=== PATIENT | female | born 1935 | race Caucasian/White ===

== ENCOUNTER 2018-01-21 14:59 | Inpatient (IN) | payer MEDICARE, MEDICAID ==
[~2018-01-21] VITALS: Ht 142.2 cm; Wt 62.6 kg
[2018-01-21 18:49] LABS: ANION GAP 9 mmol/L (5-15); BLOOD UREA NITROGEN 23 mg/dL (7-18); CALCIUM 8.9 MG/DL (8.5-10.1); CARBON DIOXIDE 23 MMOL/L (21-32); CHLORIDE 106 MMOL/L (98-107); CREATININE 0.9 MG/DL (0.55-1.30); HEMOGLOBIN 11.6 G/DL (12.0-16.0); LYMPHOCYTES % (AUTO) 41.3 % (20.0-45.0); MEAN CORPUSCULAR VOLUME 82 FL (80-99); MONOCYTES % (AUTO) 3.5 % (1.0-10.0); NEUTROPHILS % (AUTO) 50.3 % (45.0-75.0); PLATELET COUNT 180 K/UL (150-450); RED BLOOD COUNT 4.38 M/UL (4.20-5.40); RED CELL DISTRIBUTION WIDTH 12.9 % (11.6-14.8); SODIUM 138 MMOL/L (136-145); WHITE BLOOD COUNT 4.6 K/UL (4.8-10.8)
--- NOTE | 2018-01-21 18:52 | Emergency Room Report ---
History of Present Illness General Chief Complaint: Upper Respiratory Illness Source: Patient, EMS Present Illness HPI The patient states that she has had a progressively worsening cough and shortness of breath. This is occurred over the past 3 days. She states that she has sputum production. She states she has a history of COPD and her inhalers are not working. She denies fever or chills. She denies nausea or vomiting. She denies abdominal pain. She has no other complaints. Allergies: Coded Allergies: No Known Allergies (Unverified , 01/21/18) Patient History Past Medical History: see triage record, HTN, COPD, other - chron's Social History: Denies: smoking, alcohol use, drug use Last Menstrual Period: na Reviewed Nursing Documentation: PMH: Agreed; PSxH: Agreed Nursing Documentation-PMH Past Medical History: No History, Except For Hx Hypertension: Yes Hx COPD: Yes Hx Gastrointestinal Problems: Yes - ulcerative colitis Review of Systems All Other Systems: negative except mentioned in HPI Physical Exam Vital Signs Date Time Temp Pulse Resp B/P (MAP) Pulse Ox O2 Delivery O2 Flow Rate FiO2 01/21/18 14:52 97.6 72 18 126/78 93 Room Air 97.5 Sp02 EP Interpretation: reviewed, normal General Appearance: no apparent distress, alert, GCS 15, non-toxic Head: normocephalic, atraumatic Eyes: bilateral eye normal inspection, bilateral eye PERRL ENT: hearing grossly normal, normal pharynx, no angioedema, normal voice Neck: full range of motion, supple/symm/no masses Respiratory: chest non-tender, lungs clear, normal breath sounds, speaking full sentences Cardiovascular #1: regular rate, rhythm, no edema Gastrointestinal: normal bowel sounds, non tender, soft, non-distended, no guarding, no rebound Rectal: deferred Musculoskeletal: back normal, gait/station normal, normal range of motion, non- tender Neurologic: alert, oriented x3, responsive, motor strength/tone normal, sensory intact, speech normal Psychiatric: judgement/insight normal, memory normal, mood/affect normal, no suicidal/homicidal ideation Skin: normal color, no rash, warm/dry, well hydrated Medical Decision Making Diagnostic Impression: Primary Impression: COPD exacerbation ER Course This patient presents with COPD exacerbation. She has failed treatment at home. She lives alone and she is elderly. The patient was given azithromycin, prednisone and breathing treatments and admitted for further pulmonary hygiene. I felt that this patient should not be discharged home given her age and the progression of her respiratory symptoms. Laboratory Tests Test 01/21/18 18:00 White Blood Count 4.6 K/UL (4.8-10.8) L Red Blood Count 4.38 M/UL (4.20-5.40) Hemoglobin 11.6 G/DL (12.0-16.0) L Hematocrit 36.0 % (37.0-47.0) L Mean Corpuscular Volume 82 FL (80-99) Mean Corpuscular Hemoglobin 26.4 PG (27.0-31.0) L Mean Corpuscular Hemoglobin Concent 32.2 G/DL (32.0-36.0) Red Cell Distribution Width 12.9 % (11.6-14.8) Platelet Count 180 K/UL (150-450) Mean Platelet Volume 7.7 FL (6.5-10.1) Neutrophils (%) (Auto) 50.3 % (45.0-75.0) Lymphocytes (%) (Auto) 41.3 % (20.0-45.0) Monocytes (%) (Auto) 3.5 % (1.0-10.0) Eosinophils (%) (Auto) 3.0 % (0.0-3.0) Basophils (%) (Auto) 2.0 % (0.0-2.0) Sodium Level 138 MMOL/L (136-145) Potassium Level 5.0 MMOL/L (3.5-5.1) Chloride Level 106 MMOL/L (98-107) Carbon Dioxide Level 23 MMOL/L (21-32) Anion Gap 9 mmol/L (5-15) Blood Urea Nitrogen 23 mg/dL (7-18) H Creatinine 0.9 MG/DL (0.55-1.30) Estimate Glomerular Filtration Rate mL/min (>60) Glucose Level 116 MG/DL (74-106) H Calcium Level 8.9 MG/DL (8.5-10.1) Total Bilirubin 0.2 MG/DL (0.2-1.0) Aspartate Amino Transferase (AST) 21 U/L (15-37) Alanine Aminotransferase (ALT) 19 U/L (12-78) Alkaline Phosphatase 48 U/L (46-116) Total Creatine Kinase 121 U/L (26-308) Troponin I 0.000 ng/mL (0.000-0.056) Total Protein 7.4 G/DL (6.4-8.2) Albumin 3.9 G/DL (3.4-5.0) Globulin 3.5 g/dL Albumin/Globulin Ratio 1.1 (1.0-2.7) Chest X-Ray Diagnostic Results Chest X-Ray Diagnostic Results : Chest X-Ray Ordered: Yes # of Views/Limited/Complete: 1 View Indication: Shortness of Breath EP Interpretation: Yes Interpretation: no consolidation, no effusion, no pneumothorax, no acute cardiopulmonary disease Impression: No acute disease Electronically Signed by: Elaine Last Vital Signs Date Time Temp Pulse Resp B/P (MAP) Pulse Ox O2 Delivery O2 Flow Rate FiO2 01/21/18 18:18 72 18 Room Air 01/21/18 14:52 97.6 126/78 93 97.5 Disposition: ADMITTED INPATIENT Condition: Stable Referrals: NOT CHOSEN IPA/,REFERRING (PCP) NASREEN DAWN D.O. Jan 21, 2018 18:52
[2018-01-21 18:54] LABS: ALANINE AMINOTRANSFERASE 19 U/L (12-78); ALBUMIN 3.9 G/DL (3.4-5.0); ALBUMIN/GLOBULIN RATIO 1.1 (1.0-2.7); ALKALINE PHOSPHATASE 48 U/L (46-116); ASPARTATE AMINO TRANSFERASE 21 U/L (15-37); BILIRUBIN,TOTAL 0.2 MG/DL (0.2-1.0); CREATINE KINASE 121 U/L (26-308)
[2018-01-21] MEDS ORDERED: Ipratropium 0.02% Inh Soln 2.5ml UD HHN ONE (19:00)
[2018-01-21] MEDS ORDERED: Azithromycin 500 MG in NS 275 ML IV ONE (19:00)
[2018-01-21] MEDS ORDERED: Albuterol ud Inhalation HHN ONE (19:00)
[2018-01-21 19:18] VITALS: BP 114/62
[2018-01-21] MEDS ORDERED: CYMBALTA30 MG ORAL (19:20)
[2018-01-21] MEDS ORDERED: NEURONTIN100 MG ORAL (19:20)
[2018-01-21] MEDS ORDERED: XANAX0.25 MG ORAL (19:20)
[2018-01-21] MEDS ORDERED: BREO ELLIPTA 21 EACH IH (20:01)
[2018-01-21] MEDS ORDERED: BENICAR20 MG ORAL (20:01)
[2018-01-21] MEDS ORDERED: ROPINIROLE HCL1 MG PO (20:01)
[2018-01-21] MEDS ORDERED: ALPRAZOLAM0.5 MG PO (20:01)
[2018-01-21] MEDS ORDERED: CYMBALTA60 MG ORAL (20:01)
[2018-01-21] MEDS ORDERED: GABAPENTIN600 MG ORAL (20:01)
[2018-01-21] MEDS ORDERED: MONTELUKAST SOD10 MG ORAL (20:01)
[2018-01-21] MEDS ORDERED: VENTOLIN HFA18 GM INH (20:01)
[2018-01-21] MEDS ORDERED: BEVESPI AEROS10.7 GM IH (20:01)
[2018-01-21] MEDS ORDERED: NORCO 5-325 TA1 EAC1 ORAL (20:01)
[2018-01-21] MEDS ORDERED: NEXIUM40 MG ORAL (20:01)
[2018-01-21] MEDS ORDERED: AZITHROMYCIN250 MG ORAL (20:02)
[2018-01-21 20:10] VITALS: BP 116/45
[2018-01-21 20:36] VITALS: BP 116/45
[2018-01-22] VITALS: BP 116/78
[2018-01-22] MEDS: ALPRAZolam 0.5mg tab ORAL SCH ×5 (00:03→20:11)
[2018-01-22 04:00] VITALS: BP 127/75
[2018-01-22 08:00] VITALS: BP 107/72
[2018-01-22] MEDS: DULoxetine 30mg cap ORAL SCH (08:24)
--- NOTE | 2018-01-22 08:28 | Diagnostic Imaging Report ---
Indication: Cough Technique: One view of the chest Comparison: none Findings: There is elevation of left hemidiaphragm, resultant crowding of the bronchovascular markings on the left. Lungs and pleural spaces are otherwise clear. Heart size is upper limits of normal. There are degenerative changes of the right shoulder Impression: No acute process. Findings as noted
[2018-01-22 12:00] VITALS: BP 142/76
[2018-01-22 16:07] VITALS: BP 109/59
--- NOTE | 2018-01-22 16:36 | Consultation ---
History of Present Illness General Date patient seen: Jan 22, 2018 Chief Complaint: Upper Respiratory Illness Present Illness HPI 82 year old female with hx of COPD, current smoker for more than 40 years. presented to ER with CC of worsening cough and shortness of breath. This is occurred over the past 3 days. She states that she has sputum production. She denies fever or chills. She denies nausea or vomiting. She denies abdominal pain. She has no other complaints. She was diagnosed to have acute exacerbation of COPD and [place] [facility]. Allergies: Coded Allergies: No Known Allergies (Unverified , 01/21/18) Medication History Scheduled Albuterol Sulfate (Ventolin Hfa), 2 PUFFS INH EVERY 6 HOURS, (Reported) Alprazolam* (Xanax*), 0.5 MG PO QID, (Reported) Azithromycin* (Zithromax*), 250 MG ORAL DAILY, (Reported) Duloxetine Hcl* (Cymbalta*), 60 MG ORAL DAILY, (Reported) Esomeprazole Magnesium (Nexium), 40 MG ORAL DAILY, (Reported) Fluticasone/Vilanterol (Breo Ellipta 200-25 Mcg INH), 1 EACH IH BID, (Reported) Gabapentin* (Gabapentin*), 600 MG ORAL THREE TIMES A DAY, (Reported) Glycopyrrolate/Formoterol Fum (Bevespi Aerosphere Inhaler), 10.7 GM IH DAILY, ( Reported) Montelukast Sodium* (Montelukast Sodium*), 10 MG ORAL DAILY, (Reported) Olmesartan Medoxomil (Benicar), 20 MG ORAL DAILY, (Reported) Ropinirole Hcl* (Ropinirole Hcl*), 3 MG PO TID, (Reported) Scheduled PRN Hydrocodone Bit/Acetaminophen 5-325* ([place] 5-325 Tablet*), 1 TAB ORAL BID PRN for For Pain, (Reported) Discontinued Medications Alprazolam* (Xanax*), Unknown Dose ORAL THREE TIMES A DAY, (Reported) Discontinued Reason: Prescription changed Duloxetine Hcl* (Cymbalta*), Unknown Dose ORAL DAILY, (Reported) Discontinued Reason: Prescription changed Gabapentin* (Neurontin*), Unknown Dose ORAL THREE TIMES A DAY, (Reported) Discontinued Reason: Prescription changed Patient History Healthcare decision maker N Resuscitation status Full Code Advanced Directive on File No Past Medical/Surgical History Past Medical/Surgical History: (1) COPD (chronic obstructive pulmonary disease) Review of Systems Respiratory: Reports: shortness of breath, sputum All Other Systems: negative except mentioned in HPI Physical Exam General Appearance: WD/WN Lines, tubes and drains: peripheral HEENT: normocephalic, atraumatic, PERRL Neck: non-tender, normal alignment, limited range of motion Respiratory/Chest: chest wall non-tender, lungs clear Breasts: no masses Cardiovascular/Chest: normal peripheral pulses, normal rate, regular rhythm Abdomen: normal bowel sounds, non tender, soft Genitourinary/Rectal: normal genital exam, heme negative stool Extremities: normal range of motion, non-tender Skin Exam: normal pigmentation Neurologic: representative phlebotomy services II-XII grossly normal Lymphatic: anterior cervical Last 24 Hour Vital Signs Date Time Temp Pulse Resp B/P (MAP) Pulse Ox O2 Delivery O2 Flow Rate FiO2 01/22/18 16:07 98.1 75 18 109/59 94 Room Air 98.1 01/22/18 12:00 97.9 89 18 142/76 99 97.9 01/22/18 11:00 97.4 01/22/18 10:01 97.4 01/22/18 08:00 97.4 78 18 107/72 93 97.4 01/22/18 00:00 97.3 75 18 116/78 94 97.3 01/21/18 20:40 97.1 83 18 116/45 100 Room Air 21 97.1 01/21/18 20:36 83 18 116/45 100 Room Air 21 01/21/18 20:10 97.1 76 19 116/45 100 Room Air 21 97.1 01/21/18 19:52 71 19 100 Room Air 21 01/21/18 19:37 75 23 100 Room Air 01/21/18 19:37 75 23 Room Air 01/21/18 19:21 76 18 Room Air 01/21/18 19:18 97.5 76 18 114/62 98 Room Air 97.5 01/21/18 18:18 72 18 Room Air Intake and Output 01/21/18 01/22/18 19:00 07:00 Intake Total 275 ml Balance 275 ml IV Total 275 ml # Voids 1 Laboratory Tests Test 01/21/18 18:00 White Blood Count 4.6 K/UL (4.8-10.8) L Red Blood Count 4.38 M/UL (4.20-5.40) Hemoglobin 11.6 G/DL (12.0-16.0) L Hematocrit 36.0 % (37.0-47.0) L Mean Corpuscular Volume 82 FL (80-99) Mean Corpuscular Hemoglobin 26.4 PG (27.0-31.0) L Mean Corpuscular Hemoglobin Concent 32.2 G/DL (32.0-36.0) Red Cell Distribution Width 12.9 % (11.6-14.8) Platelet Count 180 K/UL (150-450) Mean Platelet Volume 7.7 FL (6.5-10.1) Neutrophils (%) (Auto) 50.3 % (45.0-75.0) Lymphocytes (%) (Auto) 41.3 % (20.0-45.0) Monocytes (%) (Auto) 3.5 % (1.0-10.0) Eosinophils (%) (Auto) 3.0 % (0.0-3.0) Basophils (%) (Auto) 2.0 % (0.0-2.0) Sodium Level 138 MMOL/L (136-145) Potassium Level 5.0 MMOL/L (3.5-5.1) Chloride Level 106 MMOL/L (98-107) Carbon Dioxide Level 23 MMOL/L (21-32) Anion Gap 9 mmol/L (5-15) Blood Urea Nitrogen 23 mg/dL (7-18) H Creatinine 0.9 MG/DL (0.55-1.30) Estimat Glomerular Filtration Rate mL/min (>60) Glucose Level 116 MG/DL (74-106) H Calcium Level 8.9 MG/DL (8.5-10.1) Total Bilirubin 0.2 MG/DL (0.2-1.0) Aspartate Amino Transf (AST/SGOT) 21 U/L (15-37) Alanine Aminotransferase (ALT/SGPT) 19 U/L (12-78) Alkaline Phosphatase 48 U/L (46-116) Total Creatine Kinase 121 U/L (26-308) Troponin I 0.000 ng/mL (0.000-0.056) Total Protein 7.4 G/DL (6.4-8.2) Albumin 3.9 G/DL (3.4-5.0) Globulin 3.5 g/dL Albumin/Globulin Ratio 1.1 (1.0-2.7) Height (Feet): 4 Height (Inches): 8.00 Weight (Pounds): 138 Medications Current Medications Medications (Trade) Dose Ordered Sig/Nahum Route PRN Reason Start Time Stop Time Status Last Admin Dose Admin Acetaminophen (Tylenol) 650 mg Q6H PRN ORAL Mild Pain/Temp > 100.5 01/22/18 06:45 02/21/18 06:44 01/22/18 10:01 Alprazolam (Xanax) 0.5 mg QID ORAL 01/21/18 23:51 01/28/18 23:50 01/22/18 12:06 Duloxetine HCl (Cymbalta) 60 mg DAILY ORAL 01/22/18 09:00 02/21/18 08:59 01/22/18 08:24 Gabapentin (Neurontin) 600 mg THREE TIMES A DAY ORAL 01/21/18 22:00 02/20/18 21:59 01/22/18 12:05 Ropinirole HCl (Requip) 3 mg TID ORAL 01/21/18 22:00 02/20/18 21:59 01/22/18 12:05 Temazepam (Restoril) 15 mg HSPRN PRN ORAL Insomnia 01/22/18 05:30 01/29/18 05:29 Assessment/Plan Problem List: (1) Acute bronchitis ICD Codes: J20.9 - Acute bronchitis, unspecified SNOMED: 34050040 (2) COPD exacerbation ICD Codes: J44.1 - Chronic obstructive pulmonary disease with (acute) exacerbation SNOMED: 726960401 Assessment/Plan check sputum respiratory treatment iv steroids iv abx chest pt titrate fio2 to sat of 92% dvt prophylaxis. Octavio Peters MD Jan 22, 2018 16:36
[2018-01-22] MEDS ORDERED: Levofloxacin 500mg tab ORAL SCH (20:00)
[2018-01-22] MEDS: Norco 5mg/325mg tab ORAL PRN (20:13)
[2018-01-22 21:00] VITALS: BP 102/74
--- NOTE | 2018-01-22 21:41 | Consultation ---
History of Present Illness General Date patient seen: Jan 22, 2018 Chief Complaint: Upper Respiratory Illness Present Illness HPI 82-year-old female with hx of depression and anxiety who presents with chief complaint of cough and shortness of breath. the pt stated that she is not able to sleep and has problems with breathing. the pt has no si/hi. the pt is on xanax 2mg daily and Cymbalta. The pt is not psychotic/manic. Allergies: Coded Allergies: No Known Allergies (Unverified , 01/21/18) Medication History Scheduled Albuterol Sulfate (Ventolin Hfa), 2 PUFFS INH EVERY 6 HOURS, (Reported) Alprazolam* (Xanax*), 0.5 MG PO QID, (Reported) Azithromycin* (Zithromax*), 250 MG ORAL DAILY, (Reported) Duloxetine Hcl* (Cymbalta*), 60 MG ORAL DAILY, (Reported) Esomeprazole Magnesium (Nexium), 40 MG ORAL DAILY, (Reported) Fluticasone/Vilanterol (Breo Ellipta 200-25 Mcg INH), 1 EACH IH BID, (Reported) Gabapentin* (Gabapentin*), 600 MG ORAL THREE TIMES A DAY, (Reported) Glycopyrrolate/Formoterol Fum (Bevespi Aerosphere Inhaler), 10.7 GM IH DAILY, ( Reported) Montelukast Sodium* (Montelukast Sodium*), 10 MG ORAL DAILY, (Reported) Olmesartan Medoxomil (Benicar), 20 MG ORAL DAILY, (Reported) Ropinirole Hcl* (Ropinirole Hcl*), 3 MG PO TID, (Reported) Scheduled PRN Hydrocodone Bit/Acetaminophen 5-325* ([place] 5-325 Tablet*), 1 TAB ORAL BID PRN for For Pain, (Reported) Discontinued Medications Alprazolam* (Xanax*), Unknown Dose ORAL THREE TIMES A DAY, (Reported) Discontinued Reason: Prescription changed Duloxetine Hcl* (Cymbalta*), Unknown Dose ORAL DAILY, (Reported) Discontinued Reason: Prescription changed Gabapentin* (Neurontin*), Unknown Dose ORAL THREE TIMES A DAY, (Reported) Discontinued Reason: Prescription changed Patient History Limited by: medical condition History Provided By: Patient, Medical Record, PMD Healthcare decision maker N Resuscitation status Full Code Advanced Directive on File No Past Medical/Surgical History Past Medical/Surgical History: (1) COPD (chronic obstructive pulmonary disease) (2) Acute bronchitis (3) COPD exacerbation Review of Systems Psychiatric: Reports: prior hx, anxiety, depressed feelings, emotional problems Physical Exam General Appearance: WD/WN, no apparent distress, alert Neurologic: alert, oriented x 3, responsive, depressed affect Last 24 Hour Vital Signs Date Time Temp Pulse Resp B/P (MAP) Pulse Ox O2 Delivery O2 Flow Rate FiO2 01/22/18 16:07 98.1 75 18 109/59 94 Room Air 98.1 01/22/18 12:00 97.9 89 18 142/76 99 97.9 01/22/18 11:00 97.4 01/22/18 10:01 97.4 01/22/18 08:00 97.4 78 18 107/72 93 97.4 01/22/18 00:00 97.3 75 18 116/78 94 97.3 Intake and Output 01/21/18 01/22/18 19:00 07:00 Intake Total 275 ml Balance 275 ml IV Total 275 ml # Voids 1 Height (Feet): 4 Height (Inches): 8.00 Weight (Pounds): 138 Medications Current Medications Medications (Trade) Dose Ordered Sig/Nahum Route PRN Reason Start Time Stop Time Status Last Admin Dose Admin Acetaminophen (Tylenol) 650 mg Q6H PRN ORAL Mild Pain/Temp > 100.5 01/22/18 06:45 02/21/18 06:44 01/22/18 10:01 Acetaminophen/ Hydrocodone Bitart ([place] 5/325) 1 tab BIDPRN PRN ORAL Moderate-Severe Pain (4-10) 01/22/18 16:30 01/29/18 16:29 01/22/18 20:13 Alprazolam (Xanax) 0.5 mg QID ORAL 01/21/18 23:51 01/28/18 23:50 01/22/18 20:11 Diphenhydramine HCl (Benadryl) 25 mg Q8H PRN ORAL Itching 01/22/18 17:15 02/21/18 17:14 01/22/18 20:11 Duloxetine HCl (Cymbalta) 60 mg DAILY ORAL 01/22/18 09:00 02/21/18 08:59 01/22/18 08:24 Gabapentin (Neurontin) 600 mg THREE TIMES A DAY ORAL 01/21/18 22:00 02/20/18 21:59 01/22/18 17:15 Levofloxacin (Levaquin) 250 mg QHS ORAL 01/23/18 21:00 01/30/18 20:59 Levofloxacin (Levaquin) 500 mg ONCE ORAL 01/22/18 20:00 01/29/18 19:59 01/22/18 20:11 Montelukast Sodium (Singulair) 10 mg DAILY ORAL 01/23/18 09:00 02/22/18 08:59 Ropinirole HCl (Requip) 3 mg TID ORAL 01/21/18 22:00 02/20/18 21:59 01/22/18 17:15 Temazepam (Restoril) 15 mg HSPRN PRN ORAL Insomnia 01/22/18 05:30 01/29/18 05:29 Assessment/Plan Status: stable Assessment/Plan MDD Anxiety d/o -Xanax -Cymbalta 60mg qam -Remeron 7.5mg qhs Alem Morales M.D. Jan 22, 2018 21:41
[2018-01-22] MEDS ORDERED: Albuterol ud Inhalation HHN PRN (21:45)
[2018-01-22] MEDS ORDERED: Ipratropium 0.02% Inh Soln 2.5ml UD HHN PRN (21:45)
[2018-01-22] MEDS ORDERED: ALPRAZolam 0.5mg tab ORAL SCH (22:00)
[2018-01-23] VITALS: BP 99/58
--- NOTE | 2018-01-23 | History and Physical Report ---
DATE OF ADMISSION: 01/21/2018 CHIEF COMPLAINT: The patient is an 82-year-old white female who presents with chief complaint of cough and shortness of breath. HISTORY OF PRESENT ILLNESS: Began three days prior to admission. The patient began to experience upper respiratory tract infection symptoms. The patient does complain of cough. The patient was complaining of nasal discharge. Cough is nonproductive. The patient was seen by her primary care physician and given a Z-Vitaly. The patient states she became increasingly short of breath over the last three days. The patient also had subjective fevers and chills. The patient had a cough, which was productive of a greenish sputum. The patient also had nasal discharge. The patient presented to [facility]. The patient was admitted for cough to rule out pneumonia. PAST MEDICAL HISTORY: Significant for: 1. Hypertension. 2. Chronic obstructive pulmonary disease. 3. Ulcerative colitis. PAST SURGICAL HISTORY: Significant for: 1. Cholecystectomy. 2. Incisional hernia repair. 3. section. 4. Right hip open reduction and internal fixation. CURRENT MEDICATIONS: 1. Albuterol metered-dose inhaler two puffs p.o. q.i.d. p.r.n. 2. Xanax 0.5 mg p.o. q.i.d. p.r.n. 3. Cymbalta 60 mg p.o. daily. 4. Nexium 40 mg p.o. daily. 5. Breo Ellipta 200/25 one inhalation twice daily. 6. Gabapentin 600 mg p.o. three times daily. 7. inhaler one inhalation daily. 8. [place] 5/325 mg one tablet p.o. twice daily p.r.n. 9. Singulair 10 mg p.o. daily. 10. Benicar 20 mg p.o. daily. 11. Requip 3 mg p.o. three times daily. ALLERGIES: No known drug allergies. SOCIAL HISTORY: The patient is . The patient admits to tobacco use of one-quarter pack per day. The patient denies alcohol use. REVIEW OF SYSTEMS: CONSTITUTIONAL: The patient denies weight loss or weight gain. The patient denies fevers or chills. HEENT: The patient denies ear or throat pain. The patient denies headache. CARDIOVASCULAR: The patient denies palpitations or chest pain. CHEST: The patient complains of cough as above. The patient denies wheezes. ABDOMEN: The patient denies nausea, vomiting, diarrhea, or constipation. GENITOURINARY: The patient denies dysuria or increased frequency of urination. NEUROMUSCULAR: The patient denies seizures or generalized weakness. PHYSICAL EXAMINATION: VITAL SIGNS: Temperature 97.3 degrees, respirations 18, pulse 75, and blood pressure 116/70. GENERAL: The patient is a well-nourished, well-nourished, white female, in no apparent distress. HEENT: Eyes, pupils equal and responsive to light and accommodation. Extraocular movements are intact. NECK: Supple without lymphadenopathy. CHEST: Few expiratory wheezes bilaterally. Chest is negative for rales. Lungs are otherwise clear to auscultation without wheezes or rales. CARDIOVASCULAR: Regular rhythm and rate. S1 and S2 are normal without murmurs, rubs, or gallops. ABDOMEN: Soft, nontender, and nondistended. Positive bowel sounds. No evidence of hepatosplenomegaly. Currently, no rebound or guarding noted. RECTAL: Refused. GENITALIA: Refused. EXTREMITIES: Negative for clubbing, cyanosis, or edema. NEUROLOGIC: Cranial nerves II to XII are grossly intact without focal deficits. Motor strength is 5/5 bilaterally intact. Deep tendon reflexes are 2+ plantar. LABORATORY STUDIES: WBC 4.6, hemoglobin 11.6, hematocrit 36.0, and platelets 180,000. Sodium 138, potassium 5.0, chloride 106, CO2 23, BUN 23, creatinine 0.9, and glucose 116. Chest x-ray is reported as no acute disease. ASSESSMENT: This is an 82-year-old white female with: 1. Shortness of breath. 2. Bronchitis. 3. Chronic obstructive pulmonary disease acute exacerbation. 4. Hypertension. 5. History of ulcerative colitis. TREATMENT: 1. Shortness of breath/bronchitis/chronic obstructive pulmonary disease. A Pulmonary consultation has been obtained with Dr. Octavio Peters. The patient has been started empirically on Levaquin. We will follow recommendations of Pulmonary. 2. Hypertension. Continue Benicar as above. 3. Ulcerative colitis. Surya Guerra M.D. DR: Ruddy JOB#: [id number] CC:
[2018-01-23] MEDS: Albuterol/Ipratropium 3ml neb HHN SCH ×4 (01:27→20:52)
[2018-01-23] MEDS ORDERED: Albuterol ud Inhalation HHN PRN (01:45)
[2018-01-23 04:00] VITALS: BP 97/59
[2018-01-23 06:37] LABS: BASOPHILS % (AUTO) 1.7 % (0.0-2.0); EOSINOPHILS % (AUTO) 1.5 % (0.0-3.0); HEMATOCRIT 32.4 % (37.0-47.0); HEMOGLOBIN 10.5 G/DL (12.0-16.0); LYMPHOCYTES % (AUTO) 35.3 % (20.0-45.0); MEAN CORPUSCULAR VOLUME 83 FL (80-99); MONOCYTES % (AUTO) 8.2 % (1.0-10.0); NEUTROPHILS % (AUTO) 53.3 % (45.0-75.0); PLATELET COUNT 174 K/UL (150-450); RED BLOOD COUNT 3.92 M/UL (4.20-5.40); RED CELL DISTRIBUTION WIDTH 12.9 % (11.6-14.8); WHITE BLOOD COUNT 4.4 K/UL (4.8-10.8)
[2018-01-23 06:56] LABS: ALANINE AMINOTRANSFERASE 19 U/L (12-78); ALBUMIN 3.6 G/DL (3.4-5.0); ALBUMIN/GLOBULIN RATIO 1.1 (1.0-2.7); ALKALINE PHOSPHATASE 37 U/L (46-116); ANION GAP 11 mmol/L (5-15); ASPARTATE AMINO TRANSFERASE 16 U/L (15-37); BILIRUBIN,TOTAL 0.4 MG/DL (0.2-1.0); BLOOD UREA NITROGEN 30 mg/dL (7-18); CALCIUM 8.6 MG/DL (8.5-10.1); CARBON DIOXIDE 22 MMOL/L (21-32); CHLORIDE 105 MMOL/L (98-107); PHOSPHORUS 3.9 MG/DL (2.5-4.9); POTASSIUM 4.9 MMOL/L (3.5-5.1); SODIUM 137 MMOL/L (136-145)
[2018-01-23] MEDS: DULoxetine 30mg cap ORAL SCH (08:31)
[2018-01-23] MEDS: ALPRAZolam 0.5mg tab ORAL SCH ×2 (08:32→22:11)
[2018-01-23] MEDS: Montelukast 10mg tablet ORAL SCH (08:32)
[2018-01-23 12:00] VITALS: BP 117/67
--- NOTE | 2018-01-23 12:13 | General Progress Note ---
Assessment/Plan Status: stable, progressing Assessment/Plan MDD Anxiety d/o -Xanax -Cymbalta 60mg qam -Remeron 7.5mg qhs Subjective Date patient seen: Jan 23, 2018 Neurologic/Psychiatric: Reports: anxiety, depressed, emotional problems Allergies: Coded Allergies: No Known Allergies (Unverified , 01/21/18) Objective Last 24 Hour Vital Signs Date Time Temp Pulse Resp B/P (MAP) Pulse Ox O2 Delivery O2 Flow Rate FiO2 01/23/18 07:26 81 16 97 Room Air 21 01/23/18 07:15 68 16 Room Air 21 01/23/18 07:15 68 18 94 Room Air 21 01/23/18 04:00 97.3 71 15 97/59 97.3 01/23/18 04:00 92 01/23/18 01:36 70 18 96 Room Air 21 01/23/18 01:24 68 20 95 Room Air 21 01/23/18 00:00 97.8 69 16 99/58 95 97.8 01/22/18 22:22 69 16 95 Room Air 21 01/22/18 22:05 72 18 93 Room Air 21 01/22/18 22:05 72 18 Room Air 21 01/22/18 21:00 97.7 73 15 102/74 93 97.7 01/22/18 16:07 98.1 75 18 109/59 94 Room Air 98.1 Intake and Output 01/22/18 01/23/18 19:00 07:00 Intake Total 240 ml Balance 240 ml Intake Oral 240 ml # Voids 3 3 # Bowel Movements 1 Laboratory Tests 01/23/18 04:50: White Blood Count 4.4L, Red Blood Count 3.92L, Hemoglobin 10.5L, Hematocrit 32.4L, Mean Corpuscular Volume 83, Mean Corpuscular Hemoglobin 26.9L, Mean Corpuscular Hemoglobin Concent 32.6, Red Cell Distribution Width 12.9, Platelet Count 174, Mean Platelet Volume 8.2, Neutrophils (%) (Auto) 53.3, Lymphocytes (% ) (Auto) 35.3, Monocytes (%) (Auto) 8.2, Eosinophils (%) (Auto) 1.5, Basophils ( %) (Auto) 1.7, Erythrocyte Sedimentation Rate 24, Sodium Level 137, Potassium Level 4.9, Chloride Level 105, Carbon Dioxide Level 22, Anion Gap 11, Blood Urea Nitrogen 30H, Creatinine 1.0, Estimat Glomerular Filtration Rate , Glucose Level 80, Calcium Level 8.6, Phosphorus Level 3.9, Magnesium Level 1.7L, Total Bilirubin 0.4, Aspartate Amino Transf (AST/SGOT) 16, Alanine Aminotransferase ( ALT/SGPT) 19, Alkaline Phosphatase 37L, C-Reactive Protein, Quantitative < 0.4, Total Protein 6.9, Albumin 3.6, Globulin 3.3, Albumin/Globulin Ratio 1.1 Height (Feet): 4 Height (Inches): 8.00 Weight (Pounds): 138 General Appearance: WD/WN, no apparent distress, alert Neurologic: alert, oriented x 3, responsive, depressed affect Alem Morales M.D. Jan 23, 2018 12:13
[2018-01-23] MEDS ORDERED: ALPRAZolam 0.5mg tab ORAL SCH (13:00)
[2018-01-23] MEDS ORDERED: Promethazine/Codeine 5ml UD ORAL PRN (14:45)
--- NOTE | 2018-01-23 14:47 | Pulmonology Progress Note ---
Assessment/Plan Problems: (1) Acute bronchitis (2) COPD exacerbation Assessment/Plan check sputum BC pending add steroids add theophyline check labs in am Subjective ROS Limited/Unobtainable: No Interval Events: still coughin, less energetic Allergies: Coded Allergies: No Known Allergies (Unverified , 01/21/18) Objective Last 24 Hour Vital Signs Date Time Temp Pulse Resp B/P (MAP) Pulse Ox O2 Delivery O2 Flow Rate FiO2 01/23/18 13:55 71 18 95 Room Air 21 01/23/18 12:00 97.4 63 20 117/67 99 97.4 01/23/18 07:26 81 16 97 Room Air 21 01/23/18 07:15 68 16 Room Air 21 01/23/18 07:15 68 18 94 Room Air 21 01/23/18 04:00 97.3 71 15 97/59 97.3 01/23/18 04:00 92 01/23/18 01:36 70 18 96 Room Air 21 01/23/18 01:24 68 20 95 Room Air 21 01/23/18 00:00 97.8 69 16 99/58 95 97.8 01/22/18 22:22 69 16 95 Room Air 21 01/22/18 22:05 72 18 93 Room Air 21 01/22/18 22:05 72 18 Room Air 21 01/22/18 21:00 97.7 73 15 102/74 93 97.7 01/22/18 16:07 98.1 75 18 109/59 94 Room Air 98.1 Intake and Output 01/22/18 01/23/18 19:00 07:00 Intake Total 240 ml Balance 240 ml Intake Oral 240 ml # Voids 3 3 # Bowel Movements 1 General Appearance: WD/WN HEENT: normocephalic, atraumatic Respiratory/Chest: chest wall non-tender, lungs clear Breasts: no masses Cardiovascular: normal peripheral pulses Abdomen: normal bowel sounds, soft, non tender Extremities: no cyanosis Skin: no rash 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, no motor/sensory deficits, abnormal gait Microbiology Date/Time Source Procedure Growth Status 01/21/18 18:00 Blood Blood Culture - Preliminary NO GROWTH AFTER 24 HOURS Resulted 01/21/18 18:00 Blood Blood Culture - Preliminary NO GROWTH AFTER 24 HOURS Resulted Laboratory Tests 01/23/18 04:50: White Blood Count 4.4L, Red Blood Count 3.92L, Hemoglobin 10.5L, Hematocrit 32.4L, Mean Corpuscular Volume 83, Mean Corpuscular Hemoglobin 26.9L, Mean Corpuscular Hemoglobin Concent 32.6, Red Cell Distribution Width 12.9, Platelet Count 174, Mean Platelet Volume 8.2, Neutrophils (%) (Auto) 53.3, Lymphocytes (% ) (Auto) 35.3, Monocytes (%) (Auto) 8.2, Eosinophils (%) (Auto) 1.5, Basophils ( %) (Auto) 1.7, Erythrocyte Sedimentation Rate 24, Sodium Level 137, Potassium Level 4.9, Chloride Level 105, Carbon Dioxide Level 22, Anion Gap 11, Blood Urea Nitrogen 30H, Creatinine 1.0, Estimat Glomerular Filtration Rate , Glucose Level 80, Calcium Level 8.6, Phosphorus Level 3.9, Magnesium Level 1.7L, Total Bilirubin 0.4, Aspartate Amino Transf (AST/SGOT) 16, Alanine Aminotransferase ( ALT/SGPT) 19, Alkaline Phosphatase 37L, C-Reactive Protein, Quantitative < 0.4, Total Protein 6.9, Albumin 3.6, Globulin 3.3, Albumin/Globulin Ratio 1.1 Current Medications Medications (Trade) Dose Ordered Sig/Nahum Route PRN Reason Start Time Stop Time Status Last Admin Dose Admin Acetaminophen (Tylenol) 650 mg Q6H PRN ORAL Mild Pain/Temp > 100.5 01/22/18 06:45 02/21/18 06:44 01/22/18 10:01 Acetaminophen/ Hydrocodone Bitart ([place] 5/325) 1 tab BIDPRN PRN ORAL Moderate-Severe Pain (4-10) 01/22/18 16:30 01/29/18 16:29 01/22/18 20:13 Albuterol Sulfate (Proventil) 2.5 mg Q4H PRN HHN SHORTNESS OF BREATH 01/23/18 01:45 01/27/18 21:44 Albuterol/ Ipratropium (Albuterol/ Ipratropium) 3 ml Q6HRT HHN 01/23/18 01:00 01/28/18 00:59 01/23/18 14:00 Alprazolam (Xanax) 0.25 mg QID ORAL 01/23/18 13:00 01/30/18 12:59 01/23/18 12:42 Diphenhydramine HCl (Benadryl) 25 mg Q8H PRN ORAL Itching 01/22/18 17:15 02/21/18 17:14 01/23/18 05:21 Duloxetine HCl (Cymbalta) 60 mg DAILY ORAL 01/22/18 09:00 02/21/18 08:59 01/23/18 08:31 Gabapentin (Neurontin) 600 mg THREE TIMES A DAY ORAL 01/21/18 22:00 02/20/18 21:59 01/23/18 12:41 Ipratropium [place] (Atrovent) 500 mcg Q4H PRN HHN UNRELIEVED S.O.B 01/22/18 21:45 01/27/18 21:44 01/22/18 22:04 Levofloxacin (Levaquin) 250 mg QHS ORAL 01/23/18 21:00 01/30/18 20:59 Levofloxacin (Levaquin) 500 mg ONCE ORAL 01/22/18 20:00 01/29/18 19:59 01/22/18 20:11 Mirtazapine (Remeron) 7.5 mg BEDTIME ORAL 01/23/18 21:00 02/22/18 20:59 Montelukast Sodium (Singulair) 10 mg DAILY ORAL 01/23/18 09:00 02/22/18 08:59 01/23/18 08:32 Ropinirole HCl (Requip) 3 mg TID ORAL 01/21/18 22:00 02/20/18 21:59 01/23/18 12:41 Octavio Peters MD Jan 23, 2018 14:46
[2018-01-23] MEDS: Theophylline ER 100mg ORAL SCH (16:00)
[2018-01-23] MEDS: Solu-MEDROL 40mg Inj IVP SCH ×2 (16:01→22:11)
--- NOTE | 2018-01-23 16:28 | Internal Med Progress Note ---
Subjective Date of Service: Jan 23, 2018 Physician Name Andres Chavez Attending Physician Kris Sahni MD Current Medications Medications (Trade) Dose Ordered Sig/Nahum Route PRN Reason Start Time Stop Time Status Last Admin Dose Admin Acetaminophen (Tylenol) 650 mg Q6H PRN ORAL Mild Pain/Temp > 100.5 01/22/18 06:45 02/21/18 06:44 01/22/18 10:01 Acetaminophen/ Hydrocodone Bitart ([place] 5/325) 1 tab BIDPRN PRN ORAL Moderate-Severe Pain (4-10) 01/22/18 16:30 01/29/18 16:29 01/22/18 20:13 Albuterol Sulfate (Proventil) 2.5 mg Q4H PRN HHN SHORTNESS OF BREATH 01/23/18 01:45 01/27/18 21:44 Albuterol/ Ipratropium (Albuterol/ Ipratropium) 3 ml Q6HRT HHN 01/23/18 01:00 01/28/18 00:59 01/23/18 14:00 Alprazolam (Xanax) 0.25 mg EVERY 8 HOURS ORAL 01/23/18 22:00 01/30/18 12:59 Diphenhydramine HCl (Benadryl) 25 mg Q8H PRN ORAL Itching 01/22/18 17:15 02/21/18 17:14 01/23/18 05:21 Duloxetine HCl (Cymbalta) 60 mg DAILY ORAL 01/22/18 09:00 02/21/18 08:59 01/23/18 08:31 Gabapentin (Neurontin) 600 mg THREE TIMES A DAY ORAL 01/21/18 22:00 02/20/18 21:59 01/23/18 12:41 Ipratropium [place] (Atrovent) 500 mcg Q4H PRN HHN UNRELIEVED S.O.B 01/22/18 21:45 01/27/18 21:44 01/22/18 22:04 Levofloxacin (Levaquin) 250 mg QHS ORAL 01/23/18 21:00 01/30/18 20:59 Magnesium Sulfate 100 ml @ 100 mls/hr Q1H IVPB 01/23/18 16:00 01/23/18 16:59 Methylprednisolone Sodium Succinate (Solu-MEDROL) 40 mg EVERY 8 HOURS IVP 01/23/18 14:45 02/22/18 14:44 01/23/18 16:01 Mirtazapine (Remeron) 7.5 mg BEDTIME ORAL 01/23/18 21:00 02/22/18 20:59 Montelukast Sodium (Singulair) 10 mg DAILY ORAL 01/23/18 09:00 02/22/18 08:59 01/23/18 08:32 Promethazine HCl/ Codeine (Phenergan with Codeine) 5 ml Q4H PRN ORAL For Cough 01/23/18 14:45 02/22/18 14:44 Ropinirole HCl (Requip) 3 mg TID ORAL 01/21/18 22:00 02/20/18 21:59 01/23/18 12:41 Theophylline (Delbert-Dur) 100 mg DAILY ORAL 01/23/18 16:00 02/22/18 15:59 01/23/18 16:00 Allergies: Coded Allergies: No Known Allergies (Unverified , 01/21/18) ROS Limited/Unobtainable: No Constitutional: Reports: no symptoms HEENT: Reports: no symptoms Cardiovascular: Reports: no symptoms Respiratory: Reports: cough Gastrointestinal/Abdominal: Reports: no symptoms Genitourinary: Reports: no symptoms Neurologic/Psychiatric: Reports: no symptoms Subjective 82 YO F admitted with shortness of breath. Now bronchitis and COPD exacerbation. Cover for Yane Calderon-Dr Sahni Objective Last Vital Signs Date Time Temp Pulse Resp B/P (MAP) Pulse Ox O2 Delivery O2 Flow Rate FiO2 01/23/18 14:05 75 16 97 Room Air 21 01/23/18 12:00 97.4 117/67 97.4 General Appearance: WD/WN, no apparent distress, alert EENT: PERRL/EOMI, normal ENT inspection Neck: non-tender, normal alignment, supple, normal inspection Cardiovascular: normal peripheral pulses, normal rate, regular rhythm, no gallop/murmur, no JVD Respiratory/Chest: chest wall non-tender, respiratory distress, crackles/rales , rhonchi - bilaterally, expiratory wheezing Abdomen: normal bowel sounds, non tender, soft, no organomegaly, no mass Extremities: normal range of motion, non-tender 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, no motor/sensory deficits Skin: normal pigmentation, warm/dry Laboratory Tests Test 01/23/18 04:50 White Blood Count 4.4 K/UL (4.8-10.8) L Red Blood Count 3.92 M/UL (4.20-5.40) L Hemoglobin 10.5 G/DL (12.0-16.0) L Hematocrit 32.4 % (37.0-47.0) L Mean Corpuscular Volume 83 FL (80-99) Mean Corpuscular Hemoglobin 26.9 PG (27.0-31.0) L Mean Corpuscular Hemoglobin Concent 32.6 G/DL (32.0-36.0) Red Cell Distribution Width 12.9 % (11.6-14.8) Platelet Count 174 K/UL (150-450) Mean Platelet Volume 8.2 FL (6.5-10.1) Neutrophils (%) (Auto) 53.3 % (45.0-75.0) Lymphocytes (%) (Auto) 35.3 % (20.0-45.0) Monocytes (%) (Auto) 8.2 % (1.0-10.0) Eosinophils (%) (Auto) 1.5 % (0.0-3.0) Basophils (%) (Auto) 1.7 % (0.0-2.0) Erythrocyte Sedimentation Rate 24 MM/HR (0-30) Sodium Level 137 MMOL/L (136-145) Potassium Level 4.9 MMOL/L (3.5-5.1) Chloride Level 105 MMOL/L (98-107) Carbon Dioxide Level 22 MMOL/L (21-32) Anion Gap 11 mmol/L (5-15) Blood Urea Nitrogen 30 mg/dL (7-18) H Creatinine 1.0 MG/DL (0.55-1.30) Estimat Glomerular Filtration Rate mL/min (>60) Glucose Level 80 MG/DL (74-106) Calcium Level 8.6 MG/DL (8.5-10.1) Phosphorus Level 3.9 MG/DL (2.5-4.9) Magnesium Level 1.7 MG/DL (1.8-2.4) L Total Bilirubin 0.4 MG/DL (0.2-1.0) Aspartate Amino Transf (AST/SGOT) 16 U/L (15-37) Alanine Aminotransferase (ALT/SGPT) 19 U/L (12-78) Alkaline Phosphatase 37 U/L (46-116) L C-Reactive Protein, Quantitative < 0.4 mg/dL (0.00-0.90) Total Protein 6.9 G/DL (6.4-8.2) Albumin 3.6 G/DL (3.4-5.0) Globulin 3.3 g/dL Albumin/Globulin Ratio 1.1 (1.0-2.7) Microbiology Date/Time Source Procedure Growth Status 01/21/18 18:00 Blood Blood Culture - Preliminary NO GROWTH AFTER 24 HOURS Resulted 01/21/18 18:00 Blood Blood Culture - Preliminary NO GROWTH AFTER 24 HOURS Resulted Intake and Output 01/22/18 01/23/18 19:00 07:00 Intake Total 240 ml Balance 240 ml Intake Oral 240 ml # Voids 3 3 # Bowel Movements 1 Assessment/Plan Problem List: (1) HTN (hypertension) Assessment & Plan: Stable off meds. (2) Ulcerative colitis (3) Acute bronchitis Assessment & Plan: continue levaquin (4) COPD exacerbation Assessment & Plan: Continue theophylline, IV solumedrol and duonebs per ID. Status: not improved ANDRES CHAVEZ Jan 23, 2018 16:28
[2018-01-23 16:56] VITALS: BP 112/52
[2018-01-23 19:15] VITALS: BP 115/53
[2018-01-23 23:50] VITALS: BP 108/64
[2018-01-24] MEDS: Albuterol/Ipratropium 3ml neb HHN SCH ×4 (01:26→20:14)
[2018-01-24 03:48] VITALS: BP 102/54
[2018-01-24] MEDS: Solu-MEDROL 40mg Inj IVP SCH ×2 (06:14→21:21)
[2018-01-24] MEDS: ALPRAZolam 0.5mg tab ORAL SCH ×3 (06:15→21:21)
[2018-01-24 07:25] LABS: HEMATOCRIT 33.6 % (37.0-47.0); HEMOGLOBIN 11.4 G/DL (12.0-16.0); MEAN CORPUSCULAR VOLUME 82 FL (80-99); PLATELET COUNT 198 K/UL (150-450); RED BLOOD COUNT 4.11 M/UL (4.20-5.40); RED CELL DISTRIBUTION WIDTH 12.3 % (11.6-14.8)
[2018-01-24 07:37] LABS: ALANINE AMINOTRANSFERASE 21 U/L (12-78); ALBUMIN 3.7 G/DL (3.4-5.0); ALKALINE PHOSPHATASE 42 U/L (46-116); ANION GAP 11 mmol/L (5-15); ASPARTATE AMINO TRANSFERASE 14 U/L (15-37); BILIRUBIN,TOTAL 0.3 MG/DL (0.2-1.0); BLOOD UREA NITROGEN 26 mg/dL (7-18); CALCIUM 8.7 MG/DL (8.5-10.1); CARBON DIOXIDE 20 MMOL/L (21-32); CHLORIDE 106 MMOL/L (98-107); CREATININE 0.9 MG/DL (0.55-1.30); PHOSPHORUS 3.7 MG/DL (2.5-4.9); POTASSIUM 5.3 MMOL/L (3.5-5.1); SODIUM 137 MMOL/L (136-145)
[2018-01-24 08:00] VITALS: BP 113/55
[2018-01-24] MEDS: Theophylline ER 100mg ORAL SCH (08:46)
[2018-01-24] MEDS: Montelukast 10mg tablet ORAL SCH (08:47)
[2018-01-24] MEDS: DULoxetine 30mg cap ORAL SCH (08:48)
--- NOTE | 2018-01-24 10:50 | Pulmonology Progress Note ---
Assessment/Plan Problems: (1) Acute bronchitis (2) COPD exacerbation Assessment/Plan check sputum BC pending taper steroids to q 12 Kayexalate 30 gm times one for Hyperkalemia add theophyline check labs in am pt/ot in process Subjective ROS Limited/Unobtainable: No Constitutional: Reports: no symptoms HEENT: Repors: no symptoms Allergies: Coded Allergies: No Known Allergies (Unverified , 01/21/18) Objective Last 24 Hour Vital Signs Date Time Temp Pulse Resp B/P (MAP) Pulse Ox O2 Delivery O2 Flow Rate FiO2 01/24/18 10:37 97.9 01/24/18 08:00 97.9 84 20 113/55 98 97.9 01/24/18 07:42 80 18 98 Nasal Cannula 2.0 28 01/24/18 07:33 96 Nasal Cannula 2.0 28 01/24/18 07:33 75 18 95 Nasal Cannula 2.0 28 01/24/18 07:33 Nasal Cannula 2.0 28 01/24/18 04:00 Nasal Cannula 2.0 01/24/18 03:48 97.7 82 18 102/54 96 Nasal Cannula 97.7 01/24/18 01:27 89 20 98 Nasal Cannula 2.0 28 01/24/18 01:26 86 16 97 Nasal Cannula 2.0 28 01/24/18 00:00 Nasal Cannula 2.0 01/23/18 23:50 96.4 86 20 108/64 92 Room Air 96.4 01/23/18 20:59 95 Nasal Cannula 2.0 28 01/23/18 20:59 Nasal Cannula 2.0 28 01/23/18 20:00 72 18 97 Nasal Cannula 2.0 28 01/23/18 20:00 70 18 95 Nasal Cannula 2.0 28 01/23/18 20:00 Nasal Cannula 2.0 01/23/18 20:00 70 18 Nasal Cannula 2.0 28 01/23/18 19:15 97.0 75 20 115/53 Nasal Cannula 97.0 01/23/18 16:56 97.4 72 18 112/52 99 Room Air 97.4 01/23/18 14:05 75 16 97 Room Air 21 01/23/18 13:55 71 18 95 Room Air 21 01/23/18 12:00 97.4 63 20 117/67 99 97.4 Intake and Output 4/20/18 4/21/18 19:00 07:00 Intake Total 1070 ml 960 ml Balance 1070 ml 960 ml Intake Oral 1020 ml 360 ml IV Total 50 ml 600 ml # Voids 3 3 # Bowel Movements 1 General Appearance: WD/WN HEENT: normocephalic, atraumatic Respiratory/Chest: chest wall non-tender, lungs clear Breasts: no masses Cardiovascular: normal peripheral pulses, normal rate Abdomen: normal bowel sounds, soft, non tender Genitourinary: normal external genitalia 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, no motor/sensory deficits Microbiology Date/Time Source Procedure Growth Status 01/21/18 18:00 Blood Blood Culture - Preliminary NO GROWTH AFTER 48 HOURS Resulted 01/21/18 18:00 Blood Blood Culture - Preliminary NO GROWTH AFTER 48 HOURS Resulted Laboratory Tests 01/24/18 05:00: White Blood Count 5.0, Red Blood Count 4.11L, Hemoglobin 11.4L, Hematocrit 33.6L , Mean Corpuscular Volume 82, Mean Corpuscular Hemoglobin 27.7, Mean Corpuscular Hemoglobin Concent 33.8, Red Cell Distribution Width 12.3, Platelet Count 198, Mean Platelet Volume 8.0, Neutrophils (%) (Auto) , Lymphocytes (%) ( Auto) , Monocytes (%) (Auto) , Eosinophils (%) (Auto) , Basophils (%) (Auto) , Neutrophils % (Manual) [Pending], Lymphocytes % (Manual) [Pending], Platelet Estimate [Pending], Platelet Morphology [Pending], Sodium Level 137, Potassium Level 5.3H, Chloride Level 106, Carbon Dioxide Level 20L, Anion Gap 11, Blood Urea Nitrogen 26H, Creatinine 0.9, Estimat Glomerular Filtration Rate , Glucose Level 162H, Calcium Level 8.7, Phosphorus Level 3.7, Magnesium Level 2.1, Total Bilirubin 0.3, Aspartate Amino Transf (AST/SGOT) 14L, Alanine Aminotransferase ( ALT/SGPT) 21, Alkaline Phosphatase 42L, Total Protein 7.5, Albumin 3.7, Globulin 3.8, Albumin/Globulin Ratio 1.0 Current Medications Medications (Trade) Dose Ordered Sig/Nahmu Route PRN Reason Start Time Stop Time Status Last Admin Dose Admin Acetaminophen (Tylenol) 650 mg Q6H PRN ORAL Mild Pain/Temp > 100.5 01/22/18 06:45 02/21/18 06:44 01/24/18 09:38 Acetaminophen/ Hydrocodone Bitart ([place] 5/325) 1 tab BIDPRN PRN ORAL Moderate-Severe Pain (4-10) 01/22/18 16:30 01/29/18 16:29 01/22/18 20:13 Albuterol Sulfate (Proventil) 2.5 mg Q4H PRN HHN SHORTNESS OF BREATH 01/23/18 01:45 01/27/18 21:44 Albuterol/ Ipratropium (Albuterol/ Ipratropium) 3 ml Q6HRT HHN 01/23/18 01:00 01/28/18 00:59 01/24/18 07:33 Alprazolam (Xanax) 0.25 mg EVERY 8 HOURS ORAL 01/23/18 22:00 01/30/18 12:59 01/24/18 06:15 Diphenhydramine HCl (Benadryl) 25 mg Q8H PRN ORAL Itching 01/22/18 17:15 02/21/18 17:14 01/23/18 05:21 Duloxetine HCl (Cymbalta) 60 mg DAILY ORAL 01/22/18 09:00 02/21/18 08:59 01/24/18 08:48 Gabapentin (Neurontin) 600 mg THREE TIMES A DAY ORAL 01/21/18 22:00 02/20/18 21:59 01/24/18 08:48 Ipratropium [place] (Atrovent) 500 mcg Q4H PRN HHN UNRELIEVED S.O.B 01/22/18 21:45 01/27/18 21:44 01/22/18 22:04 Levofloxacin 50 ml @ 50 mls/hr Q24H IVPB 01/23/18 18:00 01/30/18 17:59 01/23/18 17:27 Levothyroxine Sodium (Synthroid) 50 mcg DAILY ORAL 01/23/18 17:00 02/22/18 16:59 01/24/18 06:23 Methylprednisolone Sodium Succinate (Solu-MEDROL) 40 mg EVERY 8 HOURS IVP 01/23/18 14:45 02/22/18 14:44 01/24/18 06:14 Mirtazapine (Remeron) 7.5 mg BEDTIME ORAL 01/23/18 21:00 02/22/18 20:59 01/23/18 20:07 Montelukast Sodium (Singulair) 10 mg DAILY ORAL 01/23/18 09:00 02/22/18 08:59 01/24/18 08:47 Pantoprazole (Protonix) 40 mg DAILY ORAL 01/23/18 17:00 02/22/18 16:59 01/24/18 06:24 Promethazine HCl/ Codeine (Phenergan with Codeine) 5 ml Q4H PRN ORAL For Cough 01/23/18 14:45 02/22/18 14:44 Ropinirole HCl (Requip) 3 mg TID ORAL 01/21/18 22:00 02/20/18 21:59 01/24/18 08:47 Sodium Chloride 1,000 ml @ 50 mls/hr Q20H IV 01/23/18 17:15 02/22/18 17:14 01/23/18 17:23 Theophylline ([place]-Dur) 100 mg DAILY ORAL 01/23/18 16:00 02/22/18 15:59 01/24/18 08:46 Octavio Peters MD Jan 24, 2018 10:50
[2018-01-24] MEDS ORDERED: Sodium Polystyrene Sulfonate 15gm Powder ORAL SCH (11:00)
[2018-01-24 12:00] VITALS: BP 135/75
--- NOTE | 2018-01-24 13:46 | Internal Med Progress Note ---
Subjective Date of Service: Jan 24, 2018 Physician Name MariAndres Attending Physician Kris Sahni MD Current Medications Medications (Trade) Dose Ordered Sig/Nahum Route PRN Reason Start Time Stop Time Status Last Admin Dose Admin Acetaminophen (Tylenol) 650 mg Q6H PRN ORAL Mild Pain/Temp > 100.5 01/22/18 06:45 02/21/18 06:44 01/24/18 09:38 Acetaminophen/ Hydrocodone Bitart ([place] 5/325) 1 tab BIDPRN PRN ORAL Moderate-Severe Pain (4-10) 01/22/18 16:30 01/29/18 16:29 01/22/18 20:13 Albuterol Sulfate (Proventil) 2.5 mg Q4H PRN HHN SHORTNESS OF BREATH 01/23/18 01:45 01/27/18 21:44 Albuterol/ Ipratropium (Albuterol/ Ipratropium) 3 ml Q6HRT HHN 01/23/18 01:00 01/28/18 00:59 01/24/18 07:33 Alprazolam (Xanax) 0.25 mg EVERY 8 HOURS ORAL 01/23/18 22:00 01/30/18 12:59 01/24/18 13:17 Diphenhydramine HCl (Benadryl) 25 mg Q8H PRN ORAL Itching 01/22/18 17:15 02/21/18 17:14 01/23/18 05:21 Duloxetine HCl (Cymbalta) 60 mg DAILY ORAL 01/22/18 09:00 02/21/18 08:59 01/24/18 08:48 Gabapentin (Neurontin) 600 mg THREE TIMES A DAY ORAL 01/21/18 22:00 02/20/18 21:59 01/24/18 13:10 Ipratropium [place] (Atrovent) 500 mcg Q4H PRN HHN UNRELIEVED S.O.B 01/22/18 21:45 01/27/18 21:44 01/22/18 22:04 Levofloxacin 50 ml @ 50 mls/hr Q24H IVPB 01/23/18 18:00 01/30/18 17:59 01/23/18 17:27 Levothyroxine Sodium (Synthroid) 50 mcg DAILY ORAL 01/23/18 17:00 02/22/18 16:59 01/24/18 06:23 Methylprednisolone Sodium Succinate (Solu-MEDROL) 40 mg EVERY 12 HOURS IVP 01/24/18 21:00 02/22/18 14:44 Mirtazapine (Remeron) 7.5 mg BEDTIME ORAL 01/23/18 21:00 02/22/18 20:59 01/23/18 20:07 Montelukast Sodium (Singulair) 10 mg DAILY ORAL 01/23/18 09:00 02/22/18 08:59 01/24/18 08:47 Pantoprazole (Protonix) 40 mg DAILY ORAL 01/23/18 17:00 02/22/18 16:59 01/24/18 06:24 Promethazine HCl/ Codeine (Phenergan with Codeine) 5 ml Q4H PRN ORAL For Cough 01/23/18 14:45 02/22/18 14:44 Ropinirole HCl (Requip) 3 mg TID ORAL 01/21/18 22:00 02/20/18 21:59 01/24/18 13:11 Sodium Chloride 1,000 ml @ 50 mls/hr Q20H IV 01/23/18 17:15 02/22/18 17:14 01/23/18 17:23 Theophylline ([place]-Dur) 100 mg DAILY ORAL 01/23/18 16:00 02/22/18 15:59 01/24/18 08:46 Allergies: Coded Allergies: No Known Allergies (Unverified , 01/21/18) ROS Limited/Unobtainable: No Constitutional: Reports: no symptoms HEENT: Reports: no symptoms Cardiovascular: Reports: no symptoms Respiratory: Reports: shortness of breath Gastrointestinal/Abdominal: Reports: no symptoms Genitourinary: Reports: no symptoms Neurologic/Psychiatric: Reports: no symptoms Subjective 82 YO F admitted with shortness of breath. Now bronchitis and COPD exacerbation. Cover for Yane Calderon-Dr Sahni Objective Last Vital Signs Date Time Temp Pulse Resp B/P (MAP) Pulse Ox O2 Delivery O2 Flow Rate FiO2 01/24/18 12:00 98.1 83 20 135/75 97 98.1 01/24/18 07:42 Nasal Cannula 2.0 28 Laboratory Tests Test 01/24/18 05:00 White Blood Count 5.0 K/UL (4.8-10.8) Red Blood Count 4.11 M/UL (4.20-5.40) L Hemoglobin 11.4 G/DL (12.0-16.0) L Hematocrit 33.6 % (37.0-47.0) L Mean Corpuscular Volume 82 FL (80-99) Mean Corpuscular Hemoglobin 27.7 PG (27.0-31.0) Mean Corpuscular Hemoglobin Concent 33.8 G/DL (32.0-36.0) Red Cell Distribution Width 12.3 % (11.6-14.8) Platelet Count 198 K/UL (150-450) Mean Platelet Volume 8.0 FL (6.5-10.1) Neutrophils (%) (Auto) % (45.0-75.0) Lymphocytes (%) (Auto) % (20.0-45.0) Monocytes (%) (Auto) % (1.0-10.0) Eosinophils (%) (Auto) % (0.0-3.0) Basophils (%) (Auto) % (0.0-2.0) Differential Total Cells Counted 100 Neutrophils % (Manual) 81 % (45-75) H Lymphocytes % (Manual) 17 % (20-45) L Monocytes % (Manual) 1 % (1-10) Eosinophils % (Manual) 0 % (0-3) Basophils % (Manual) 0 % (0-2) Band Neutrophils 1 % (0-8) Platelet Estimate Adequate Platelet Morphology Normal Sodium Level 137 MMOL/L (136-145) Potassium Level 5.3 MMOL/L (3.5-5.1) H Chloride Level 106 MMOL/L (98-107) Carbon Dioxide Level 20 MMOL/L (21-32) L Anion Gap 11 mmol/L (5-15) Blood Urea Nitrogen 26 mg/dL (7-18) H Creatinine 0.9 MG/DL (0.55-1.30) Estimat Glomerular Filtration Rate mL/min (>60) Glucose Level 162 MG/DL (74-106) H Calcium Level 8.7 MG/DL (8.5-10.1) Phosphorus Level 3.7 MG/DL (2.5-4.9) Magnesium Level 2.1 MG/DL (1.8-2.4) Total Bilirubin 0.3 MG/DL (0.2-1.0) Aspartate Amino Transf (AST/SGOT) 14 U/L (15-37) L Alanine Aminotransferase (ALT/SGPT) 21 U/L (12-78) Alkaline Phosphatase 42 U/L (46-116) L Total Protein 7.5 G/DL (6.4-8.2) Albumin 3.7 G/DL (3.4-5.0) Globulin 3.8 g/dL Albumin/Globulin Ratio 1.0 (1.0-2.7) Microbiology Date/Time Source Procedure Growth Status 01/21/18 18:00 Blood Blood Culture - Preliminary NO GROWTH AFTER 48 HOURS Resulted 01/21/18 18:00 Blood Blood Culture - Preliminary NO GROWTH AFTER 48 HOURS Resulted Intake and Output 01/23/18 01/24/18 19:00 07:00 Intake Total 1070 ml 960 ml Balance 1070 ml 960 ml Intake Oral 1020 ml 360 ml IV Total 50 ml 600 ml # Voids 3 3 # Bowel Movements 1 Objective General Appearance: WD/WN, no apparent distress, alert EENT: PERRL/EOMI, normal ENT inspection Neck: non-tender, normal alignment, supple, normal inspection Cardiovascular: normal peripheral pulses, normal rate, regular rhythm, no gallop/murmur, no JVD Respiratory/Chest: chest wall non-tender, respiratory distress, crackles/rales , rhonchi - bilaterally, expiratory wheezing Abdomen: normal bowel sounds, non tender, soft, no organomegaly, no mass Extremities: normal range of motion, non-tender 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 (2) Ulcerative colitis (3) Acute bronchitis Assessment & Plan: continue levaquin (4) COPD exacerbation Assessment & Plan: Continue theophylline, IV solumedrol and duonebs per ID. Status: progressing ANDRES CHAVEZ Jan 24, 2018 13:46
[2018-01-24] MEDS: Norco 5mg/325mg tab ORAL PRN (15:09)
[2018-01-24 16:01] VITALS: BP 108/45
[2018-01-24 20:00] VITALS: BP 98/55
[2018-01-24 20:30] VITALS: BP 105/59
[2018-01-25] VITALS: BP 96/50
[2018-01-25] MEDS: Albuterol/Ipratropium 3ml neb HHN SCH ×4 (03:06→19:36)
[2018-01-25 04:00] VITALS: BP 109/59
[2018-01-25] MEDS: ALPRAZolam 0.5mg tab ORAL SCH ×2 (05:37→13:31)
[2018-01-25 07:17] LABS: ALANINE AMINOTRANSFERASE 22 U/L (12-78); ALBUMIN 3.5 G/DL (3.4-5.0); ALBUMIN/GLOBULIN RATIO 1.2 (1.0-2.7); ALKALINE PHOSPHATASE 42 U/L (46-116); ANION GAP 14 mmol/L (5-15); ASPARTATE AMINO TRANSFERASE 14 U/L (15-37); BILIRUBIN,TOTAL 0.2 MG/DL (0.2-1.0); BLOOD UREA NITROGEN 29 mg/dL (7-18); CALCIUM 8.2 MG/DL (8.5-10.1); CARBON DIOXIDE 19 MMOL/L (21-32); CHLORIDE 106 MMOL/L (98-107); PHOSPHORUS 4.1 MG/DL (2.5-4.9); POTASSIUM 4.1 MMOL/L (3.5-5.1); SODIUM 139 MMOL/L (136-145)
[2018-01-25 07:29] LABS: HEMATOCRIT 30.7 % (37.0-47.0); HEMOGLOBIN 10.1 G/DL (12.0-16.0); MEAN CORPUSCULAR VOLUME 83 FL (80-99); PLATELET COUNT 170 K/UL (150-450); RED BLOOD COUNT 3.71 M/UL (4.20-5.40); RED CELL DISTRIBUTION WIDTH 12.3 % (11.6-14.8); WHITE BLOOD COUNT 6.1 K/UL (4.8-10.8)
[2018-01-25 08:00] VITALS: BP 115/67
[2018-01-25] MEDS: Montelukast 10mg tablet ORAL SCH (09:13)
[2018-01-25] MEDS: Solu-MEDROL 40mg Inj IVP SCH ×2 (09:14→20:59)
[2018-01-25] MEDS: DULoxetine 30mg cap ORAL SCH (09:16)
[2018-01-25] MEDS: Theophylline ER 100mg ORAL SCH (09:17)
[2018-01-25] MEDS: Norco 5mg/325mg tab ORAL PRN (10:23)
[2018-01-25 12:09] VITALS: BP 125/68
--- NOTE | 2018-01-25 14:39 | Internal Med Progress Note ---
Subjective Date of Service: Jan 25, 2018 Physician Name Chavez,Andres Attending Physician Kris Sahni MD Current Medications Medications (Trade) Dose Ordered Sig/Nahum Route PRN Reason Start Time Stop Time Status Last Admin Dose Admin Acetaminophen (Tylenol) 650 mg Q6H PRN ORAL Mild Pain/Temp > 100.5 01/22/18 06:45 02/21/18 06:44 01/25/18 05:41 Acetaminophen/ Hydrocodone Bitart ([place] 5/325) 1 tab BIDPRN PRN ORAL Moderate-Severe Pain (4-10) 01/22/18 16:30 01/29/18 16:29 01/25/18 10:23 Albuterol Sulfate (Proventil) 2.5 mg Q4H PRN HHN SHORTNESS OF BREATH 01/23/18 01:45 01/27/18 21:44 Albuterol/ Ipratropium (Albuterol/ Ipratropium) 3 ml Q6HRT HHN 01/23/18 01:00 01/28/18 00:59 01/25/18 13:23 Alprazolam (Xanax) 0.25 mg EVERY 8 HOURS ORAL 01/23/18 22:00 01/30/18 12:59 01/25/18 13:31 Diphenhydramine HCl (Benadryl) 25 mg Q8H PRN ORAL Itching 01/22/18 17:15 02/21/18 17:14 01/23/18 05:21 Duloxetine HCl (Cymbalta) 60 mg DAILY ORAL 01/22/18 09:00 02/21/18 08:59 01/25/18 09:16 Gabapentin (Neurontin) 600 mg THREE TIMES A DAY ORAL 01/21/18 22:00 02/20/18 21:59 01/25/18 12:13 Ipratropium [place] (Atrovent) 500 mcg Q4H PRN HHN UNRELIEVED S.O.B 01/22/18 21:45 01/27/18 21:44 01/22/18 22:04 Levofloxacin 50 ml @ 50 mls/hr Q24H IVPB 01/23/18 18:00 01/30/18 17:59 01/24/18 17:34 Levothyroxine Sodium (Synthroid) 50 mcg DAILY ORAL 01/23/18 17:00 02/22/18 16:59 01/25/18 06:03 Methylprednisolone Sodium Succinate (Solu-MEDROL) 40 mg EVERY 12 HOURS IVP 01/24/18 21:00 02/22/18 14:44 01/25/18 09:14 Mirtazapine (Remeron) 7.5 mg BEDTIME ORAL 01/23/18 21:00 02/22/18 20:59 01/24/18 21:00 Montelukast Sodium (Singulair) 10 mg DAILY ORAL 01/23/18 09:00 02/22/18 08:59 01/25/18 09:13 Pantoprazole (Protonix) 40 mg DAILY ORAL 01/23/18 17:00 02/22/18 16:59 01/25/18 06:08 Promethazine HCl/ Codeine (Phenergan with Codeine) 5 ml Q4H PRN ORAL For Cough 01/23/18 14:45 02/22/18 14:44 Ropinirole HCl (Requip) 3 mg TID ORAL 01/21/18 22:00 02/20/18 21:59 01/25/18 12:13 Sodium Chloride 1,000 ml @ 50 mls/hr Q20H IV 01/23/18 17:15 02/22/18 17:14 01/25/18 09:13 Theophylline (Delbert-Dur) 100 mg DAILY ORAL 01/23/18 16:00 02/22/18 15:59 01/25/18 09:17 Allergies: Coded Allergies: No Known Allergies (Unverified , 01/21/18) ROS Limited/Unobtainable: No Constitutional: Reports: no symptoms HEENT: Reports: no symptoms Cardiovascular: Reports: no symptoms Respiratory: Reports: shortness of breath Gastrointestinal/Abdominal: Reports: no symptoms Genitourinary: Reports: no symptoms Neurologic/Psychiatric: Reports: no symptoms Subjective 82 YO F admitted with shortness of breath. Now bronchitis and COPD exacerbation. Cover for Int Kvng-Dr Sahni Objective Last Vital Signs Date Time Temp Pulse Resp B/P (MAP) Pulse Ox O2 Delivery O2 Flow Rate FiO2 01/25/18 13:30 85 18 Nasal Cannula 2.0 28 01/25/18 12:09 98.1 125/68 99 98.1 Laboratory Tests Test 4/22/18 04:40 White Blood Count 6.1 K/UL (4.8-10.8) Red Blood Count 3.71 M/UL (4.20-5.40) L Hemoglobin 10.1 G/DL (12.0-16.0) L Hematocrit 30.7 % (37.0-47.0) L Mean Corpuscular Volume 83 FL (80-99) Mean Corpuscular Hemoglobin 27.3 PG (27.0-31.0) Mean Corpuscular Hemoglobin Concent 33.1 G/DL (32.0-36.0) Red Cell Distribution Width 12.3 % (11.6-14.8) Platelet Count 170 K/UL (150-450) Mean Platelet Volume 7.1 FL (6.5-10.1) Neutrophils (%) (Auto) % (45.0-75.0) Lymphocytes (%) (Auto) % (20.0-45.0) Monocytes (%) (Auto) % (1.0-10.0) Eosinophils (%) (Auto) % (0.0-3.0) Basophils (%) (Auto) % (0.0-2.0) Differential Total Cells Counted 100 Neutrophils % (Manual) 83 % (45-75) H Lymphocytes % (Manual) 15 % (20-45) L Monocytes % (Manual) 2 % (1-10) Eosinophils % (Manual) 0 % (0-3) Basophils % (Manual) 0 % (0-2) Band Neutrophils 0 % (0-8) Platelet Estimate Adequate Platelet Morphology Normal Hypochromasia 1+ Sodium Level 139 MMOL/L (136-145) Potassium Level 4.1 MMOL/L (3.5-5.1) Chloride Level 106 MMOL/L (98-107) Carbon Dioxide Level 19 MMOL/L (21-32) L Anion Gap 14 mmol/L (5-15) Blood Urea Nitrogen 29 mg/dL (7-18) H Creatinine 1.0 MG/DL (0.55-1.30) Estimat Glomerular Filtration Rate mL/min (>60) Glucose Level 251 MG/DL (74-106) H Calcium Level 8.2 MG/DL (8.5-10.1) L Phosphorus Level 4.1 MG/DL (2.5-4.9) Magnesium Level 1.7 MG/DL (1.8-2.4) L Total Bilirubin 0.2 MG/DL (0.2-1.0) Aspartate Amino Transf (AST/SGOT) 14 U/L (15-37) L Alanine Aminotransferase (ALT/SGPT) 22 U/L (12-78) Alkaline Phosphatase 42 U/L (46-116) L Total Protein 6.5 G/DL (6.4-8.2) Albumin 3.5 G/DL (3.4-5.0) Globulin 3.0 g/dL Albumin/Globulin Ratio 1.2 (1.0-2.7) Intake and Output 01/24/18 01/25/18 19:00 07:00 Intake Total 1800 ml 965 ml Balance 1800 ml 965 ml Intake Oral 1500 ml 365 ml IV Total 300 ml 600 ml # Voids 3 4 Objective General Appearance: WD/WN, no apparent distress, alert EENT: PERRL/EOMI, normal ENT inspection Neck: non-tender, normal alignment, supple, normal inspection Cardiovascular: normal peripheral pulses, normal rate, regular rhythm, no gallop/murmur, no JVD Respiratory/Chest: chest wall non-tender, respiratory distress, crackles/rales , rhonchi - bilaterally, expiratory wheezing Abdomen: normal bowel sounds, non tender, soft, no organomegaly, no mass Extremities: normal range of motion, non-tender Neurologic: skilled labor II-XII grossly normal, no motor/sensory deficits Skin: normal pigmentation, warm/dry Assessment/Plan Problem List: (1) HTN (hypertension) Assessment & Plan: Stable off meds. (2) Ulcerative colitis (3) Acute bronchitis Assessment & Plan: continue levaquin (4) COPD exacerbation Assessment & Plan: Continue theophylline, IV solumedrol and duonebs per ID. Status: progressing ANDRES CHAVEZ Jan 25, 2018 14:39
[2018-01-25] MEDS ORDERED: Zolpidem 5mg tab ORAL PRN (15:00)
[2018-01-25 16:26] VITALS: BP 119/67
[2018-01-25] MEDS: ALPRAZolam 0.25mg tab ORAL PRN ×2 (17:08→21:59)
[2018-01-25 20:00] VITALS: BP 111/58
--- NOTE | 2018-01-25 21:40 | Pulmonology Progress Note ---
Assessment/Plan Problems: (1) Acute bronchitis (2) COPD exacerbation Assessment/Plan improving check sputum BC pending taper steroids on theophyline check labs in am pt/ot in process Subjective ROS Limited/Unobtainable: No - improving Allergies: Coded Allergies: No Known Allergies (Unverified , 01/21/18) Objective Last 24 Hour Vital Signs Date Time Temp Pulse Resp B/P (MAP) Pulse Ox O2 Delivery O2 Flow Rate FiO2 01/25/18 20:00 97.7 79 17 111/58 96 97.7 01/25/18 19:46 80 18 98 Nasal Cannula 2.0 28 01/25/18 19:36 80 18 97 Nasal Cannula 2.0 28 01/25/18 19:35 97 Nasal Cannula 2.0 28 01/25/18 19:35 Nasal Cannula 2.0 28 01/25/18 16:26 97.9 87 18 119/67 99 Room Air 97.9 01/25/18 13:30 85 18 Nasal Cannula 2.0 28 01/25/18 13:20 74 16 Nasal Cannula 2.0 28 01/25/18 12:09 98.1 70 18 125/68 99 Room Air 98.1 01/25/18 08:00 98.2 80 18 115/67 92 Room Air 98.2 01/25/18 07:57 81 18 98 Room Air 21 01/25/18 07:46 Room Air 01/25/18 07:46 78 16 93 Room Air 21 01/25/18 07:46 93 Room Air 21 01/25/18 06:44 98.1 01/25/18 05:41 98.1 01/25/18 04:00 Room Air 01/25/18 04:00 98.0 76 18 109/59 94 98.0 01/25/18 03:07 72 18 95 Nasal Cannula 2.0 28 01/25/18 00:44 Room Air 01/25/18 00:00 98.1 85 18 96/50 98 98.1 Intake and Output 01/24/18 01/25/18 19:00 07:00 Intake Total 1800 ml 965 ml Balance 1800 ml 965 ml Intake Oral 1500 ml 365 ml IV Total 300 ml 600 ml # Voids 3 4 General Appearance: WD/WN HEENT: normocephalic, atraumatic Respiratory/Chest: chest wall non-tender, normal breath sounds Breasts: no masses Cardiovascular: normal peripheral pulses Abdomen: normal bowel sounds, soft, non tender Genitourinary: normal external genitalia Extremities: no clubbing Neurologic/Psychiatric: paver II-XII grossly normal, no motor/sensory deficits Laboratory Tests 01/25/18 04:40: White Blood Count 6.1, Red Blood Count 3.71L, Hemoglobin 10.1L, Hematocrit 30.7L , Mean Corpuscular Volume 83, Mean Corpuscular Hemoglobin 27.3, Mean Corpuscular Hemoglobin Concent 33.1, Red Cell Distribution Width 12.3, Platelet Count 170, Mean Platelet Volume 7.1, Neutrophils (%) (Auto) , Lymphocytes (%) ( Auto) , Monocytes (%) (Auto) , Eosinophils (%) (Auto) , Basophils (%) (Auto) , Differential Total Cells Counted 100, Neutrophils % (Manual) 83H, Lymphocytes % (Manual) 15L, Monocytes % (Manual) 2, Eosinophils % (Manual) 0, Basophils % ( Manual) 0, Band Neutrophils 0, Platelet Estimate Adequate, Platelet Morphology Normal, Hypochromasia 1+, Sodium Level 139, Potassium Level 4.1, Chloride Level 106, Carbon Dioxide Level 19L, Anion Gap 14, Blood Urea Nitrogen 29H, Creatinine 1.0, Estimat Glomerular Filtration Rate , Glucose Level 251H, Calcium Level 8.2L, Phosphorus Level 4.1, Magnesium Level 1.7L, Total Bilirubin 0.2, Aspartate Amino Transf (AST/SGOT) 14L, Alanine Aminotransferase (ALT/SGPT) 22, Alkaline Phosphatase 42L, Total Protein 6.5, Albumin 3.5, Globulin 3.0, Albumin/Globulin Ratio 1.2 Current Medications Medications (Trade) Dose Ordered Sig/Nahum Route PRN Reason Start Time Stop Time Status Last Admin Dose Admin Acetaminophen (Tylenol) 650 mg Q6H PRN ORAL Mild Pain/Temp > 100.5 01/22/18 06:45 02/21/18 06:44 01/25/18 05:41 Acetaminophen/ Hydrocodone Bitart ([place] 5/325) 1 tab BIDPRN PRN ORAL Moderate-Severe Pain (4-10) 01/22/18 16:30 01/29/18 16:29 01/25/18 10:23 Albuterol Sulfate (Proventil) 2.5 mg Q4H PRN HHN SHORTNESS OF BREATH 01/23/18 01:45 01/27/18 21:44 Albuterol/ Ipratropium (Albuterol/ Ipratropium) 3 ml Q6HRT HHN 01/23/18 01:00 01/28/18 00:59 01/25/18 19:36 Alprazolam (Xanax) 0.25 mg QIDPRN PRN ORAL For Anxiety 01/25/18 15:00 02/01/18 14:59 01/25/18 17:08 Diphenhydramine HCl (Benadryl) 25 mg Q8H PRN ORAL Itching 01/22/18 17:15 02/21/18 17:14 01/23/18 05:21 Duloxetine HCl (Cymbalta) 60 mg DAILY ORAL 01/22/18 09:00 02/21/18 08:59 01/25/18 09:16 Gabapentin (Neurontin) 600 mg THREE TIMES A DAY ORAL 01/21/18 22:00 02/20/18 21:59 01/25/18 17:06 Ipratropium [place] (Atrovent) 500 mcg Q4H PRN HHN UNRELIEVED S.O.B 01/22/18 21:45 01/27/18 21:44 01/22/18 22:04 Levofloxacin 50 ml @ 50 mls/hr Q24H IVPB 01/23/18 18:00 01/30/18 17:59 01/25/18 17:06 Levothyroxine Sodium (Synthroid) 50 mcg DAILY ORAL 01/23/18 17:00 02/22/18 16:59 01/25/18 06:03 Methylprednisolone Sodium Succinate (Solu-MEDROL) 40 mg EVERY 12 HOURS IVP 01/24/18 21:00 02/22/18 14:44 01/25/18 20:59 Mirtazapine (Remeron) 7.5 mg BEDTIME ORAL 01/23/18 21:00 02/22/18 20:59 01/25/18 20:59 Montelukast Sodium (Singulair) 10 mg DAILY ORAL 01/23/18 09:00 02/22/18 08:59 01/25/18 09:13 Pantoprazole (Protonix) 40 mg DAILY ORAL 01/23/18 17:00 02/22/18 16:59 01/25/18 06:08 Promethazine HCl/ Codeine (Phenergan with Codeine) 5 ml Q4H PRN ORAL For Cough 01/23/18 14:45 02/22/18 14:44 Ropinirole HCl (Requip) 3 mg TID ORAL 01/21/18 22:00 02/20/18 21:59 01/25/18 17:06 Sodium Chloride 1,000 ml @ 50 mls/hr Q20H IV 01/23/18 17:15 02/22/18 17:14 01/25/18 09:13 Theophylline (Delbert-Dur) 100 mg DAILY ORAL 01/23/18 16:00 02/22/18 15:59 01/25/18 09:17 Zolpidem Tartrate (Ambien) 5 mg HSPRN PRN ORAL Insomnia 01/25/18 15:00 02/01/18 14:59 Octavio Peters MD Jan 25, 2018 21:40
[2018-01-26] VITALS: BP 119/61
[2018-01-26] MEDS: Albuterol/Ipratropium 3ml neb HHN SCH ×4 (01:15→21:07)
[2018-01-26] MEDS: ALPRAZolam 0.25mg tab ORAL PRN ×3 (03:36→18:35)
[2018-01-26 04:00] VITALS: BP 124/74
[2018-01-26 08:00] VITALS: BP 120/61
[2018-01-26 08:33] LABS: BASOPHILS % (AUTO) 0.5 % (0.0-2.0); EOSINOPHILS % (AUTO) 0.2 % (0.0-3.0); HEMATOCRIT 35.8 % (37.0-47.0); HEMOGLOBIN 11.8 G/DL (12.0-16.0); LYMPHOCYTES % (AUTO) 16.2 % (20.0-45.0); MEAN CORPUSCULAR VOLUME 86 FL (80-99); MONOCYTES % (AUTO) 5.6 % (1.0-10.0); NEUTROPHILS % (AUTO) 77.5 % (45.0-75.0); PLATELET COUNT 201 K/UL (150-450); RED BLOOD COUNT 4.18 M/UL (4.20-5.40); RED CELL DISTRIBUTION WIDTH 13.2 % (11.6-14.8)
[2018-01-26] MEDS: Theophylline ER 100mg ORAL SCH (09:30)
[2018-01-26] MEDS: Solu-MEDROL 40mg Inj IVP SCH ×2 (09:30→20:57)
[2018-01-26] MEDS: DULoxetine 30mg cap ORAL SCH (09:31)
[2018-01-26] MEDS: Montelukast 10mg tablet ORAL SCH (09:31)
[2018-01-26 09:46] LABS: ALANINE AMINOTRANSFERASE 32 U/L (12-78); ALBUMIN 3.3 G/DL (3.4-5.0); ALBUMIN/GLOBULIN RATIO 0.9 (1.0-2.7); ALKALINE PHOSPHATASE 38 U/L (46-116); ANION GAP 12 mmol/L (5-15); ASPARTATE AMINO TRANSFERASE 30 U/L (15-37); BILIRUBIN,TOTAL 0.4 MG/DL (0.2-1.0); BLOOD UREA NITROGEN 25 mg/dL (7-18); CALCIUM 8.2 MG/DL (8.5-10.1); CARBON DIOXIDE 19 MMOL/L (21-32); CHLORIDE 107 MMOL/L (98-107); CREATININE 0.8 MG/DL (0.55-1.30); SODIUM 138 MMOL/L (136-145)
[2018-01-26] MEDS ORDERED: LEVAQUIN500 MG ORAL (11:42)
[2018-01-26] MEDS ORDERED: MEDROL4 MG ORAL (11:42)
[2018-01-26] MEDS ORDERED: SYNTHROID50 MCG ORAL (11:42)
--- NOTE | 2018-01-26 11:46 | Internal Med Progress Note ---
Subjective Date of Service: Jan 26, 2018 Physician Name Chavez,Andres Attending Physician Kris Sahni MD Current Medications Medications (Trade) Dose Ordered Sig/Nahum Route PRN Reason Start Time Stop Time Status Last Admin Dose Admin Acetaminophen (Tylenol) 650 mg Q6H PRN ORAL Mild Pain/Temp > 100.5 01/22/18 06:45 02/21/18 06:44 01/26/18 02:20 Acetaminophen/ Hydrocodone Bitart ([place] 5/325) 1 tab BIDPRN PRN ORAL Moderate-Severe Pain (4-10) 01/22/18 16:30 01/29/18 16:29 01/25/18 10:23 Albuterol Sulfate (Proventil) 2.5 mg Q4H PRN HHN SHORTNESS OF BREATH 01/23/18 01:45 01/27/18 21:44 Albuterol/ Ipratropium (Albuterol/ Ipratropium) 3 ml Q6HRT HHN 01/23/18 01:00 01/28/18 00:59 01/26/18 08:22 Alprazolam (Xanax) 0.25 mg QIDPRN PRN ORAL For Anxiety 01/25/18 15:00 02/01/18 14:59 01/26/18 03:36 Diphenhydramine HCl (Benadryl) 25 mg Q8H PRN ORAL Itching 01/22/18 17:15 02/21/18 17:14 01/23/18 05:21 Duloxetine HCl (Cymbalta) 60 mg DAILY ORAL 01/22/18 09:00 02/21/18 08:59 01/26/18 09:31 Gabapentin (Neurontin) 600 mg THREE TIMES A DAY ORAL 01/21/18 22:00 02/20/18 21:59 01/26/18 09:[address] [place] (Atrovent) 500 mcg Q4H PRN HHN UNRELIEVED S.O.B 01/22/18 21:45 01/27/18 21:44 01/22/18 22:04 Levofloxacin 50 ml @ 50 mls/hr Q24H IVPB 01/23/18 18:00 01/30/18 17:59 01/25/18 17:06 Levothyroxine Sodium (Synthroid) 50 mcg DAILY ORAL 01/23/18 17:00 02/22/18 16:59 01/26/18 06:18 Methylprednisolone Sodium Succinate (Solu-MEDROL) 40 mg EVERY 12 HOURS IVP 01/24/18 21:00 02/22/18 14:44 01/26/18 09:30 Mirtazapine (Remeron) 15 mg BEDTIME ORAL 01/26/18 21:00 02/25/18 20:59 Montelukast Sodium (Singulair) 10 mg DAILY ORAL 01/23/18 09:00 02/22/18 08:59 01/26/18 09:31 Pantoprazole (Protonix) 40 mg DAILY ORAL 01/23/18 17:00 02/22/18 16:59 01/26/18 09:31 Promethazine HCl/ Codeine (Phenergan with Codeine) 5 ml Q4H PRN ORAL For Cough 01/23/18 14:45 02/22/18 14:44 Ropinirole HCl (Requip) 3 mg TID ORAL 01/21/18 22:00 02/20/18 21:59 01/26/18 09:30 Sodium Chloride 1,000 ml @ 50 mls/hr Q20H IV 01/23/18 17:15 02/22/18 17:14 01/26/18 05:13 Theophylline (Delbert-Dur) 100 mg DAILY ORAL 01/23/18 16:00 02/22/18 15:59 01/26/18 09:30 Zolpidem Tartrate (Ambien) 5 mg HSPRN PRN ORAL Insomnia 01/25/18 15:00 02/01/18 14:59 Allergies: Coded Allergies: No Known Allergies (Unverified , 01/21/18) ROS Limited/Unobtainable: No Constitutional: Reports: no symptoms HEENT: Reports: no symptoms Cardiovascular: Reports: no symptoms Respiratory: Reports: cough, shortness of breath Gastrointestinal/Abdominal: Reports: no symptoms Genitourinary: Reports: no symptoms Neurologic/Psychiatric: Reports: no symptoms Subjective 82 YO F admitted with shortness of breath. Now bronchitis and COPD exacerbation. Cover for Int Janel Sahni Objective Last Vital Signs Date Time Temp Pulse Resp B/P (MAP) Pulse Ox O2 Delivery O2 Flow Rate FiO2 01/26/18 08:32 86 18 98 Nasal Cannula 2.0 28 4/23/18 08:00 97.7 120/61 97.7 Laboratory Tests Test 01/26/18 07:30 White Blood Count 7.0 K/UL (4.8-10.8) Red Blood Count 4.18 M/UL (4.20-5.40) L Hemoglobin 11.8 G/DL (12.0-16.0) L Hematocrit 35.8 % (37.0-47.0) L Mean Corpuscular Volume 86 FL (80-99) Mean Corpuscular Hemoglobin 28.2 PG (27.0-31.0) Mean Corpuscular Hemoglobin Concent 32.8 G/DL (32.0-36.0) Red Cell Distribution Width 13.2 % (11.6-14.8) Platelet Count 201 K/UL (150-450) Mean Platelet Volume 7.5 FL (6.5-10.1) Neutrophils (%) (Auto) 77.5 % (45.0-75.0) H Lymphocytes (%) (Auto) 16.2 % (20.0-45.0) L Monocytes (%) (Auto) 5.6 % (1.0-10.0) Eosinophils (%) (Auto) 0.2 % (0.0-3.0) Basophils (%) (Auto) 0.5 % (0.0-2.0) Sodium Level 138 MMOL/L (136-145) Potassium Level 4.0 MMOL/L (3.5-5.1) Chloride Level 107 MMOL/L (98-107) Carbon Dioxide Level 19 MMOL/L (21-32) L Anion Gap 12 mmol/L (5-15) Blood Urea Nitrogen 25 mg/dL (7-18) H Creatinine 0.8 MG/DL (0.55-1.30) Estimat Glomerular Filtration Rate mL/min (>60) Glucose Level 102 MG/DL (74-106) # Calcium Level 8.2 MG/DL (8.5-10.1) L Total Bilirubin 0.4 MG/DL (0.2-1.0) Aspartate Amino Transf (AST/SGOT) 30 U/L (15-37) Alanine Aminotransferase (ALT/SGPT) 32 U/L (12-78) Alkaline Phosphatase 38 U/L (46-116) L Pro-B-Type Natriuretic Peptide 686 pg/mL (0-125) H Total Protein 7.0 G/DL (6.4-8.2) Albumin 3.3 G/DL (3.4-5.0) L Globulin 3.7 g/dL Albumin/Globulin Ratio 0.9 (1.0-2.7) L Intake and Output 01/25/18 01/26/18 19:00 07:00 Intake Total 1220 ml 600 ml Balance 1220 ml 600 ml Intake Oral 720 ml IV Total 500 ml 600 ml # Voids 5 3 # Bowel Movements 1 Objective General Appearance: WD/WN, no apparent distress, alert EENT: PERRL/EOMI, normal ENT inspection Neck: non-tender, normal alignment, supple, normal inspection Cardiovascular: normal peripheral pulses, normal rate, regular rhythm, no gallop/murmur, no JVD Respiratory/Chest: chest wall non-tender, respiratory distress, crackles/rales , rhonchi - bilaterally, expiratory wheezing Abdomen: normal bowel sounds, non tender, soft, no organomegaly, no mass Extremities: normal range of motion, non-tender 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 (2) Ulcerative colitis (3) Acute bronchitis Assessment & Plan: continue levaquin (4) COPD exacerbation Assessment & Plan: Continue theophylline, IV solumedrol and duonebs per ID. Change to oral prednisone when ok with pulmonary ANDRES CHAVEZ Jan 26, 2018 11:46
[2018-01-26 12:00] VITALS: BP 130/66
--- NOTE | 2018-01-26 12:32 | Diagnostic Imaging Report ---
Indication: Dyspnea Technique: One view of the chest Comparison: 01/21/2018 Findings: Bands of atelectasis are seen in the left midlung and left lung base. The pleural spaces are otherwise clear. The heart size is normal. The aorta is tortuous and calcified. There are degenerative changes of both shoulders noted. No significant change Impression: No acute process
[2018-01-26] MEDS: Norco 5mg/325mg tab ORAL PRN ×2 (13:01→20:59)
--- NOTE | 2018-01-26 14:53 | Pulmonology Progress Note ---
Assessment/Plan Problems: (1) Acute bronchitis (2) COPD exacerbation Assessment/Plan improving check sputum BC negative, no sputum yet. taper steroids on theophyline check labs in am pt/ot in process dc planning Subjective ROS Limited/Unobtainable: No Constitutional: Reports: no symptoms HEENT: Repors: no symptoms Respiratory: Reports: no symptoms Allergies: Coded Allergies: No Known Allergies (Unverified , 01/21/18) Objective Last 24 Hour Vital Signs Date Time Temp Pulse Resp B/P (MAP) Pulse Ox O2 Delivery O2 Flow Rate FiO2 01/26/18 13:37 76 20 100 Room Air 01/26/18 13:27 76 20 97 Room Air 01/26/18 08:32 86 18 98 Nasal Cannula 2.0 28 01/26/18 08:22 80 18 99 Nasal Cannula 2.0 28 01/26/18 08:20 Nasal Cannula 2.0 28 01/26/18 08:19 99 Nasal Cannula 2.0 28 01/26/18 08:00 97.7 81 20 120/61 99 97.7 01/26/18 04:00 98.2 66 19 124/74 96 98.2 01/26/18 03:19 98.1 01/26/18 02:20 98.1 01/26/18 01:25 73 16 99 Nasal Cannula 2.0 28 01/26/18 01:15 73 16 97 Nasal Cannula 2.0 28 01/26/18 00:00 98.1 74 20 119/61 97 98.1 01/25/18 20:00 97.7 79 17 111/58 96 97.7 01/25/18 19:46 80 18 98 Nasal Cannula 2.0 28 01/25/18 19:36 80 18 97 Nasal Cannula 2.0 28 01/25/18 19:35 97 Nasal Cannula 2.0 28 01/25/18 19:35 Nasal Cannula 2.0 28 01/25/18 16:26 97.9 87 18 119/67 99 Room Air 97.9 Intake and Output 01/25/18 01/26/18 19:00 07:00 Intake Total 1220 ml 600 ml Balance 1220 ml 600 ml Intake Oral 720 ml IV Total 500 ml 600 ml # Voids 5 3 # Bowel Movements 1 General Appearance: WD/WN HEENT: normocephalic, atraumatic Respiratory/Chest: chest wall non-tender, lungs clear Breasts: no masses Cardiovascular: normal peripheral pulses Abdomen: normal bowel sounds, soft, non tender Genitourinary: normal external genitalia Skin: no lesions 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/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 normal Laboratory Tests 01/26/18 07:30: White Blood Count 7.0, Red Blood Count 4.18L, Hemoglobin 11.8L, Hematocrit 35.8L , Mean Corpuscular Volume 86, Mean Corpuscular Hemoglobin 28.2, Mean Corpuscular Hemoglobin Concent 32.8, Red Cell Distribution Width 13.2, Platelet Count 201, Mean Platelet Volume 7.5, Neutrophils (%) (Auto) 77.5H, Lymphocytes ( %) (Auto) 16.2L, Monocytes (%) (Auto) 5.6, Eosinophils (%) (Auto) 0.2, Basophils (%) (Auto) 0.5, Sodium Level 138, Potassium Level 4.0, Chloride Level 107, Carbon Dioxide Level 19L, Anion Gap 12, Blood Urea Nitrogen 25H, Creatinine 0.8, Estimat Glomerular Filtration Rate , Glucose Level 102#, Calcium Level 8.2L, Total Bilirubin 0.4, Aspartate Amino Transf (AST/SGOT) 30, Alanine Aminotransferase (ALT/SGPT) 32, Alkaline Phosphatase 38L, Pro-B-Type Natriuretic Peptide 686H, Total Protein 7.0, Albumin 3.3L, Globulin 3.7, Albumin /Globulin Ratio 0.9L Current Medications Medications (Trade) Dose Ordered Sig/Nahum Route PRN Reason Start Time Stop Time Status Last Admin Dose Admin Acetaminophen (Tylenol) 650 mg Q6H PRN ORAL Mild Pain/Temp > 100.5 01/22/18 06:45 02/21/18 06:44 01/26/18 02:20 Acetaminophen/ Hydrocodone Bitart ([place] 5/325) 1 tab BIDPRN PRN ORAL Moderate-Severe Pain (4-10) 01/22/18 16:30 01/29/18 16:29 01/26/18 13:01 Albuterol Sulfate (Proventil) 2.5 mg Q4H PRN HHN SHORTNESS OF BREATH 01/23/18 01:45 01/27/18 21:44 Albuterol/ Ipratropium (Albuterol/ Ipratropium) 3 ml Q6HRT HHN 01/23/18 01:00 01/28/18 00:59 01/26/18 13:27 Alprazolam (Xanax) 0.25 mg QIDPRN PRN ORAL For Anxiety 01/25/18 15:00 02/01/18 14:59 01/26/18 12:40 Diphenhydramine HCl (Benadryl) 25 mg Q8H PRN ORAL Itching 01/22/18 17:15 02/21/18 17:14 01/23/18 05:21 Duloxetine HCl (Cymbalta) 60 mg DAILY ORAL 01/22/18 09:00 02/21/18 08:59 01/26/18 09:31 Gabapentin (Neurontin) 600 mg THREE TIMES A DAY ORAL 01/21/18 22:00 02/20/18 21:59 01/26/18 12:36 Ipratropium [place] (Atrovent) 500 mcg Q4H PRN HHN UNRELIEVED S.O.B 01/22/18 21:45 01/27/18 21:44 01/22/18 22:04 Levofloxacin 50 ml @ 50 mls/hr Q24H IVPB 01/23/18 18:00 01/30/18 17:59 01/25/18 17:06 Levothyroxine Sodium (Synthroid) 50 mcg DAILY ORAL 01/23/18 17:00 02/22/18 16:59 01/26/18 06:18 Methylprednisolone Sodium Succinate (Solu-MEDROL) 40 mg EVERY 12 HOURS IVP 01/24/18 21:00 02/22/18 14:44 01/26/18 09:30 Mirtazapine (Remeron) 15 mg BEDTIME ORAL 01/26/18 21:00 02/25/18 20:59 Montelukast Sodium (Singulair) 10 mg DAILY ORAL 01/23/18 09:00 02/22/18 08:59 01/26/18 09:31 Pantoprazole (Protonix) 40 mg DAILY ORAL 01/23/18 17:00 02/22/18 16:59 01/26/18 09:31 Promethazine HCl/ Codeine (Phenergan with Codeine) 5 ml Q4H PRN ORAL For Cough 01/23/18 14:45 02/22/18 14:44 Ropinirole HCl (Requip) 3 mg TID ORAL 01/21/18 22:00 02/20/18 21:59 01/26/18 12:36 Sodium Chloride 1,000 ml @ 50 mls/hr Q20H IV 01/23/18 17:15 02/22/18 17:14 01/26/18 05:13 Theophylline (Delbert-Dur) 100 mg DAILY ORAL 01/23/18 16:00 02/22/18 15:59 01/26/18 09:30 Zolpidem Tartrate (Ambien) 5 mg HSPRN PRN ORAL Insomnia 01/25/18 15:00 02/01/18 14:59 Octavio Peters MD Jan 26, 2018 14:53
[2018-01-26 16:00] VITALS: BP 128/63
[2018-01-26 19:10] VITALS: BP_SYST 100; BP_SYST 93; BP_DIAS 40; BP_DIAS 54
--- NOTE | 2018-01-26 22:29 | General Progress Note ---
Assessment/Plan Status: stable, progressing Assessment/Plan MDD Anxiety d/o -Xanax -Cymbalta 60mg qam -Remeron 15mg qhs -script in chart Subjective Date patient seen: Jan 26, 2018 Neurologic/Psychiatric: Reports: anxiety, depressed, emotional problems Allergies: Coded Allergies: No Known Allergies (Unverified , 01/21/18) Subjective didn't sleep last night. Objective Last 24 Hour Vital Signs Date Time Temp Pulse Resp B/P (MAP) Pulse Ox O2 Delivery O2 Flow Rate FiO2 01/26/18 21:58 97.2 01/26/18 21:17 77 20 97 Room Air 01/26/18 21:07 74 18 96 Room Air 21 01/26/18 21:07 Room Air 21 01/26/18 21:07 96 Room Air 21 01/26/18 20:59 97.2 01/26/18 19:10 97.2 74 20 100/54 94 Room Air 97.2 01/26/18 16:00 97.8 80 20 128/63 98 97.8 01/26/18 13:37 76 20 100 Room Air 01/26/18 13:27 76 20 97 Room Air 01/26/18 12:00 97.7 76 20 130/66 97 97.7 01/26/18 08:32 86 18 98 Nasal Cannula 2.0 28 01/26/18 08:22 80 18 99 Nasal Cannula 2.0 28 01/26/18 08:20 Nasal Cannula 2.0 28 01/26/18 08:19 99 Nasal Cannula 2.0 28 01/26/18 08:00 97.7 81 20 120/61 99 97.7 01/26/18 04:00 98.2 66 19 124/74 96 98.2 01/26/18 03:19 98.1 01/26/18 02:20 98.1 01/26/18 01:25 73 16 99 Nasal Cannula 2.0 28 01/26/18 01:15 73 16 97 Nasal Cannula 2.0 28 01/26/18 00:00 98.1 74 20 119/61 97 98.1 Intake and Output 01/25/18 01/26/18 19:00 07:00 Intake Total 1220 ml 600 ml Balance 1220 ml 600 ml Intake Oral 720 ml IV Total 500 ml 600 ml # Voids 5 3 # Bowel Movements 1 Laboratory Tests 01/26/18 07:30: White Blood Count 7.0, Red Blood Count 4.18L, Hemoglobin 11.8L, Hematocrit 35.8L , Mean Corpuscular Volume 86, Mean Corpuscular Hemoglobin 28.2, Mean Corpuscular Hemoglobin Concent 32.8, Red Cell Distribution Width 13.2, Platelet Count 201, Mean Platelet Volume 7.5, Neutrophils (%) (Auto) 77.5H, Lymphocytes ( %) (Auto) 16.2L, Monocytes (%) (Auto) 5.6, Eosinophils (%) (Auto) 0.2, Basophils (%) (Auto) 0.5, Sodium Level 138, Potassium Level 4.0, Chloride Level 107, Carbon Dioxide Level 19L, Anion Gap 12, Blood Urea Nitrogen 25H, Creatinine 0.8, Estimat Glomerular Filtration Rate , Glucose Level 102#, Calcium Level 8.2L, Total Bilirubin 0.4, Aspartate Amino Transf (AST/SGOT) 30, Alanine Aminotransferase (ALT/SGPT) 32, Alkaline Phosphatase 38L, Pro-B-Type Natriuretic Peptide 686H, Total Protein 7.0, Albumin 3.3L, Globulin 3.7, Albumin /Globulin Ratio 0.9L Height (Feet): 4 Height (Inches): 8.00 Weight (Pounds): 138 General Appearance: no apparent distress, alert Neurologic: oriented x 3, responsive, depressed affect Alem Morales M.D. Jan 26, 2018 22:29
--- NOTE | 2018-01-26 22:31 | Geriatric Progress Note ---
Assessment/Plan Assessment/Plan MDD Anxiety d/o -Xanax -Cymbalta 60mg qam -Remeron 7.5mg qhs Discussed with: patient Subjective Interval Events 01/25/18 Mood/Memory: Reports: prior hx, anxiety, depressed feelings Geriatric Geriatric Last 24 Hour Vital Signs Date Time Temp Pulse Resp B/P (MAP) Pulse Ox O2 Delivery O2 Flow Rate FiO2 01/26/18 21:58 97.2 01/26/18 21:17 77 20 97 Room Air 01/26/18 21:07 74 18 96 Room Air 21 01/26/18 21:07 Room Air 21 01/26/18 21:07 96 Room Air 21 01/26/18 20:59 97.2 01/26/18 19:10 97.2 74 20 100/54 94 Room Air 97.2 01/26/18 16:00 97.8 80 20 128/63 98 97.8 01/26/18 13:37 76 20 100 Room Air 01/26/18 13:27 76 20 97 Room Air 01/26/18 12:00 97.7 76 20 130/66 97 97.7 01/26/18 08:32 86 18 98 Nasal Cannula 2.0 28 01/26/18 08:22 80 18 99 Nasal Cannula 2.0 28 01/26/18 08:20 Nasal Cannula 2.0 28 01/26/18 08:19 99 Nasal Cannula 2.0 28 01/26/18 08:00 97.7 81 20 120/61 99 97.7 01/26/18 04:00 98.2 66 19 124/74 96 98.2 01/26/18 03:19 98.1 01/26/18 02:20 98.1 01/26/18 01:25 73 16 99 Nasal Cannula 2.0 28 01/26/18 01:15 73 16 97 Nasal Cannula 2.0 28 01/26/18 00:00 98.1 74 20 119/61 97 98.1 Intake and Output 01/25/18 01/26/18 19:00 07:00 Intake Total 1220 ml 600 ml Balance 1220 ml 600 ml Intake Oral 720 ml IV Total 500 ml 600 ml # Voids 5 3 # Bowel Movements 1 Laboratory Tests Test 01/26/18 07:30 White Blood Count 7.0 K/UL (4.8-10.8) Red Blood Count 4.18 M/UL (4.20-5.40) L Hemoglobin 11.8 G/DL (12.0-16.0) L Hematocrit 35.8 % (37.0-47.0) L Mean Corpuscular Volume 86 FL (80-99) Mean Corpuscular Hemoglobin 28.2 PG (27.0-31.0) Mean Corpuscular Hemoglobin Concent 32.8 G/DL (32.0-36.0) Red Cell Distribution Width 13.2 % (11.6-14.8) Platelet Count 201 K/UL (150-450) Mean Platelet Volume 7.5 FL (6.5-10.1) Neutrophils (%) (Auto) 77.5 % (45.0-75.0) H Lymphocytes (%) (Auto) 16.2 % (20.0-45.0) L Monocytes (%) (Auto) 5.6 % (1.0-10.0) Eosinophils (%) (Auto) 0.2 % (0.0-3.0) Basophils (%) (Auto) 0.5 % (0.0-2.0) Sodium Level 138 MMOL/L (136-145) Potassium Level 4.0 MMOL/L (3.5-5.1) Chloride Level 107 MMOL/L (98-107) Carbon Dioxide Level 19 MMOL/L (21-32) L Anion Gap 12 mmol/L (5-15) Blood Urea Nitrogen 25 mg/dL (7-18) H Creatinine 0.8 MG/DL (0.55-1.30) Estimat Glomerular Filtration Rate mL/min (>60) Glucose Level 102 MG/DL (74-106) # Calcium Level 8.2 MG/DL (8.5-10.1) L Total Bilirubin 0.4 MG/DL (0.2-1.0) Aspartate Amino Transf (AST/SGOT) 30 U/L (15-37) Alanine Aminotransferase (ALT/SGPT) 32 U/L (12-78) Alkaline Phosphatase 38 U/L (46-116) L Pro-B-Type Natriuretic Peptide 686 pg/mL (0-125) H Total Protein 7.0 G/DL (6.4-8.2) Albumin 3.3 G/DL (3.4-5.0) L Globulin 3.7 g/dL Albumin/Globulin Ratio 0.9 (1.0-2.7) L Current Medications Medications (Trade) Dose Ordered Sig/Nahum Route PRN Reason Start Time Stop Time Status Last Admin Dose Admin Acetaminophen (Tylenol) 650 mg Q6H PRN ORAL Mild Pain/Temp > 100.5 01/22/18 06:45 02/21/18 06:44 01/26/18 02:20 Acetaminophen/ Hydrocodone Bitart ([place] 5/325) 1 tab BIDPRN PRN ORAL Moderate-Severe Pain (4-10) 01/22/18 16:30 01/29/18 16:29 01/26/18 20:59 Albuterol Sulfate (Proventil) 2.5 mg Q4H PRN HHN SHORTNESS OF BREATH 01/23/18 01:45 01/27/18 21:44 Albuterol/ Ipratropium (Albuterol/ Ipratropium) 3 ml Q6HRT HHN 01/23/18 01:00 01/28/18 00:59 01/26/18 21:07 Alprazolam (Xanax) 0.25 mg QIDPRN PRN ORAL For Anxiety 01/25/18 15:00 02/01/18 14:59 01/26/18 18:35 Diphenhydramine HCl (Benadryl) 25 mg Q8H PRN ORAL Itching 01/22/18 17:15 02/21/18 17:14 01/23/18 05:21 Duloxetine HCl (Cymbalta) 60 mg DAILY ORAL 01/22/18 09:00 02/21/18 08:59 01/26/18 09:31 Gabapentin (Neurontin) 600 mg THREE TIMES A DAY ORAL 01/21/18 22:00 02/20/18 21:59 01/26/18 17:18 Ipratropium [place] (Atrovent) 500 mcg Q4H PRN HHN UNRELIEVED S.O.B 01/22/18 21:45 01/27/18 21:44 01/22/18 22:04 Levofloxacin 50 ml @ 50 mls/hr Q24H IVPB 01/23/18 18:00 01/30/18 17:59 01/26/18 18:03 Levothyroxine Sodium (Synthroid) 50 mcg DAILY ORAL 01/23/18 17:00 02/22/18 16:59 01/26/18 06:18 Methylprednisolone Sodium Succinate (Solu-MEDROL) 40 mg EVERY 12 HOURS IVP 01/24/18 21:00 02/22/18 14:44 01/26/18 20:57 Mirtazapine (Remeron) 15 mg BEDTIME ORAL 01/26/18 21:00 02/25/18 20:59 01/26/18 20:58 Montelukast Sodium (Singulair) 10 mg DAILY ORAL 01/23/18 09:00 02/22/18 08:59 01/26/18 09:31 Pantoprazole (Protonix) 40 mg DAILY ORAL 01/23/18 17:00 02/22/18 16:59 01/26/18 09:31 Promethazine HCl/ Codeine (Phenergan with Codeine) 5 ml Q4H PRN ORAL For Cough 01/23/18 14:45 02/22/18 14:44 Ropinirole HCl (Requip) 3 mg TID ORAL 01/21/18 22:00 02/20/18 21:59 01/26/18 17:18 Sodium Chloride 1,000 ml @ 50 mls/hr Q20H IV 01/23/18 17:15 02/22/18 17:14 01/26/18 05:13 Theophylline (Delbert-Dur) 100 mg DAILY ORAL 01/23/18 16:00 02/22/18 15:59 01/26/18 09:30 Zolpidem Tartrate (Ambien) 5 mg HSPRN PRN ORAL Insomnia 01/25/18 15:00 02/01/18 14:59 Height (Feet): 4 Height (Inches): 8.00 Weight (Pounds): 138 General Appearance: well dressed, well groomed, well nourished, alert Neurologic: oriented x3, responsive Psychiatric Orientation: person, place, time, situation Insight: Alem Adam M.D. Jan 26, 2018 22:31
[2018-01-27] VITALS: BP 114/55
[2018-01-27] MEDS: ALPRAZolam 0.25mg tab ORAL PRN ×3 (00:01→11:27)
[2018-01-27] MEDS: Albuterol/Ipratropium 3ml neb HHN SCH ×3 (00:48→13:28)
[2018-01-27 04:00] VITALS: BP 118/59
[2018-01-27 08:00] VITALS: BP 125/73
[2018-01-27] MEDS: Montelukast 10mg tablet ORAL SCH (09:03)
[2018-01-27] MEDS: Theophylline ER 100mg ORAL SCH (09:03)
[2018-01-27] MEDS: Solu-MEDROL 40mg Inj IVP SCH (09:04)
[2018-01-27] MEDS: DULoxetine 30mg cap ORAL SCH (09:04)
[2018-01-27 12:00] VITALS: BP 133/74
--- NOTE | 2018-01-27 14:31 | Pulmonology Progress Note ---
Assessment/Plan Problems: (1) Acute bronchitis (2) COPD exacerbation Assessment/Plan improving check sputum BC negative, no sputum yet. taper steroids on theophyline check labs in am pt/ot in process dc planning for today Subjective ROS Limited/Unobtainable: No Constitutional: Reports: no symptoms HEENT: Repors: no symptoms Respiratory: Reports: no symptoms Allergies: Coded Allergies: No Known Allergies (Unverified , 01/21/18) Objective Last 24 Hour Vital Signs Date Time Temp Pulse Resp B/P (MAP) Pulse Ox O2 Delivery O2 Flow Rate FiO2 01/27/18 13:34 75 20 98 Room Air 21 01/27/18 13:28 21 01/27/18 13:28 73 20 97 Room Air 21 01/27/18 12:00 97.7 71 20 133/74 99 97.7 01/27/18 08:00 98.0 72 20 125/73 100 98.0 01/27/18 08:00 98.0 75 20 125/73 100 98.0 01/27/18 07:47 78 20 97 Room Air 21 01/27/18 07:46 79 20 97 Room Air 21 01/27/18 07:46 21 01/27/18 07:45 Room Air 21 01/27/18 07:44 97 Room Air 21 01/27/18 04:00 97.0 65 15 118/59 100 97.0 01/27/18 00:57 78 20 96 Room Air 01/27/18 00:49 76 18 94 Room Air 21 01/27/18 00:00 96.7 69 14 114/55 93 96.7 01/26/18 21:58 97.2 01/26/18 21:17 77 20 97 Room Air 01/26/18 21:07 74 18 96 Room Air 21 01/26/18 21:07 Room Air 21 01/26/18 21:07 96 Room Air 21 01/26/18 20:59 97.2 01/26/18 19:10 97.2 74 20 100/54 94 Room Air 97.2 01/26/18 16:00 97.8 80 20 128/63 98 97.8 Intake and Output 01/26/18 01/27/18 19:00 07:00 Intake Total 1450 ml 450 ml Balance 1450 ml 450 ml Intake Oral 800 ml IV Total 650 ml 450 ml # Voids 3 6 General Appearance: WD/WN HEENT: normocephalic, anicteric Respiratory/Chest: chest wall non-tender, lungs clear, no respiratory distress Breasts: no masses Cardiovascular: normal peripheral pulses Abdomen: normal bowel sounds, soft, non tender, no organomegaly Current Medications Medications (Trade) Dose Ordered Sig/Nahum Route PRN Reason Start Time Stop Time Status Last Admin Dose Admin Acetaminophen (Tylenol) 650 mg Q6H PRN ORAL Mild Pain/Temp > 100.5 01/22/18 06:45 02/21/18 06:44 01/26/18 02:20 Acetaminophen/ Hydrocodone Bitart ([place] 5/325) 1 tab BIDPRN PRN ORAL Moderate-Severe Pain (4-10) 01/22/18 16:30 01/29/18 16:29 01/26/18 20:59 Albuterol Sulfate (Proventil) 2.5 mg Q4H PRN HHN SHORTNESS OF BREATH 01/23/18 01:45 01/27/18 21:44 Albuterol/ Ipratropium (Albuterol/ Ipratropium) 3 ml Q6HRT HHN 01/23/18 01:00 01/28/18 00:59 01/27/18 13:28 Alprazolam (Xanax) 0.25 mg QIDPRN PRN ORAL For Anxiety 01/25/18 15:00 02/01/18 14:59 01/27/18 11:27 Diphenhydramine HCl (Benadryl) 25 mg Q8H PRN ORAL Itching 01/22/18 17:15 02/21/18 17:14 01/23/18 05:21 Duloxetine HCl (Cymbalta) 60 mg DAILY ORAL 01/22/18 09:00 02/21/18 08:59 01/27/18 09:04 Gabapentin (Neurontin) 600 mg THREE TIMES A DAY ORAL 01/21/18 22:00 02/20/18 21:59 01/27/18 12:55 Ipratropium [place] (Atrovent) 500 mcg Q4H PRN HHN UNRELIEVED S.O.B 01/22/18 21:45 01/27/18 21:44 01/22/18 22:04 Levofloxacin (Levaquin) 250 mg DAILY ORAL 01/28/18 09:00 01/29/18 09:01 Levothyroxine Sodium (Synthroid) 50 mcg ACBREAKFAST ORAL 01/28/18 06:30 02/22/18 16:59 Methylprednisolone Sodium Succinate (Solu-MEDROL) 40 mg EVERY 12 HOURS IVP 01/24/18 21:00 02/22/18 14:44 01/27/18 09:04 Mirtazapine (Remeron) 15 mg BEDTIME ORAL 01/26/18 21:00 02/25/18 20:59 01/26/18 20:58 Montelukast Sodium (Singulair) 10 mg DAILY ORAL 01/23/18 09:00 02/22/18 08:59 01/27/18 09:03 Pantoprazole (Protonix) 40 mg DAILY ORAL 01/23/18 17:00 02/22/18 16:59 01/27/18 06:10 Promethazine HCl/ Codeine (Phenergan with Codeine) 5 ml Q4H PRN ORAL For Cough 01/23/18 14:45 02/22/18 14:44 Ropinirole HCl (Requip) 3 mg TID ORAL 01/21/18 22:00 02/20/18 21:59 01/27/18 12:55 Sodium Chloride 1,000 ml @ 50 mls/hr Q20H IV 01/23/18 17:15 02/22/18 17:14 01/27/18 01:08 Theophylline (Delbert-Dur) 100 mg DAILY ORAL 01/23/18 16:00 02/22/18 15:59 01/27/18 09:03 Zolpidem Tartrate (Ambien) 5 mg HSPRN PRN ORAL Insomnia 01/25/18 15:00 02/01/18 14:59 Octavio Peters MD Jan 27, 2018 14:30
--- NOTE | 2018-01-27 15:27 | Internal Med Progress Note ---
Subjective Date of Service: Jan 27, 2018 Physician Name Surya Chavez Attending Physician Kris Sahni MD Allergies: Coded Allergies: No Known Allergies (Unverified , 01/21/18) ROS Limited/Unobtainable: No Constitutional: Reports: no symptoms HEENT: Reports: no symptoms Cardiovascular: Reports: no symptoms Respiratory: Reports: cough Gastrointestinal/Abdominal: Reports: no symptoms Genitourinary: Reports: no symptoms Neurologic/Psychiatric: Reports: no symptoms Subjective 82 YO F admitted with shortness of breath. Now bronchitis and COPD exacerbation. Cover for Int Med-Dr Sahni. Await discharge home Objective Last Vital Signs Date Time Temp Pulse Resp B/P (MAP) Pulse Ox O2 Delivery O2 Flow Rate FiO2 01/27/18 13:34 75 20 98 Room Air 21 01/27/18 12:00 97.7 133/74 97.7 01/26/18 08:32 2.0 Intake and Output 01/26/18 01/27/18 19:00 07:00 Intake Total 1450 ml 450 ml Balance 1450 ml 450 ml Intake Oral 800 ml IV Total 650 ml 450 ml # Voids 3 6 Objective General Appearance: WD/WN, no apparent distress, alert EENT: PERRL/EOMI, normal ENT inspection Neck: non-tender, normal alignment, supple, normal inspection Cardiovascular: normal peripheral pulses, normal rate, regular rhythm, no gallop/murmur, no JVD Respiratory/Chest: chest wall non-tender, respiratory distress, crackles/rales , rhonchi - bilaterally, expiratory wheezing Abdomen: normal bowel sounds, non tender, soft, no organomegaly, no mass Extremities: normal range of motion, non-tender Neurologic: fig caprifier II-XII grossly normal, no motor/sensory deficits Skin: normal pigmentation, warm/dry Assessment/Plan Problem List: (1) HTN (hypertension) Assessment & Plan: Stable off meds. (2) Ulcerative colitis (3) Acute bronchitis Assessment & Plan: continue levaquin (4) COPD exacerbation Assessment & Plan: Continue theophylline, IV solumedrol and duonebs per ID. Change to oral prednisone when ok with pulmonary Status: stable Assessment/Plan D/C home today with medrol dose pack and levaquin PO SURYA CHAVEZ Jan 27, 2018 15:27
--- NOTE | 2018-01-27 23:38 | General Progress Note ---
Assessment/Plan Assessment/Plan MDD Anxiety d/o -Xanax -Cymbalta 60mg qam -Remeron 15mg qhs -script in chart Subjective Date patient seen: Jan 27, 2018 Neurologic/Psychiatric: Reports: anxiety, depressed, emotional problems Allergies: Coded Allergies: No Known Allergies (Unverified , 01/21/18) Subjective didn't sleep last night. Objective Last 24 Hour Vital Signs Date Time Temp Pulse Resp B/P (MAP) Pulse Ox O2 Delivery O2 Flow Rate FiO2 01/27/18 13:34 75 20 98 Room Air 21 01/27/18 13:28 21 01/27/18 13:28 73 20 97 Room Air 21 01/27/18 12:00 97.7 71 20 133/74 99 97.7 01/27/18 08:00 98.0 72 20 125/73 100 98.0 01/27/18 08:00 98.0 75 20 125/73 100 98.0 01/27/18 07:47 78 20 97 Room Air 01/27/18 07:46 79 20 97 Room Air 21 01/27/18 07:46 21 01/27/18 07:45 Room Air 21 01/27/18 07:44 97 Room Air 21 01/27/18 04:00 97.0 65 15 118/59 100 97.0 01/27/18 00:57 78 20 96 Room Air 01/27/18 00:49 76 18 94 Room Air 01/27/18 00:00 96.7 69 14 114/55 93 96.7 Intake and Output 01/26/18 01/27/18 19:00 07:00 Intake Total 1450 ml 450 ml Balance 1450 ml 450 ml Intake Oral 800 ml IV Total 650 ml 450 ml # Voids 3 6 Height (Feet): 4 Height (Inches): 8.00 Weight (Pounds): 138 General Appearance: no apparent distress, alert Alem Morales M.D. Jan 27, 2018 23:38
--- NOTE | 2018-01-29 12:04 | Discharge Summary ---
Discharge Summary Discharge Summary Discharge Summary DATE OF ADMISSION: 01/21/2018 DATE OF DISCHARGE: 01/27/2018 CONSULTANTS: Dr. Octavio Morales BRIEF HOSPITAL COURSE: Patient is an 82-year-old white female who presented with chief complaint of cough and shortness of breath. Symptoms started 3 days prior to admission. She began to experience upper respiratory tract symptoms and had cough. She was complaining of nasal discharge. Cough was nonproductive. She was seen by her primary care physician and was given a Z-Vitaly. She became increasingly short of breath over the past 3 days, and had subjective fevers and chills. Cough now productive with greenish sputum and had a nasal discharge. She had been using her inhalers however were not working. She has medical history significant for hypertension, COPD, ulcerative colitis. On evaluation at ED, blood work showed WBC 4.6, hemoglobin 11.6, hematocrit 36, potassium was 5, BUN 23, creatinine 0.9. Chest x-ray showed no acute disease. She was admitted for evaluation of shortness of breath possible bronchitis possible COPD exacerbation, with failure of outpatient treatment. She was started empirically on Levaquin. She was given respiratory treatments, chest physiotherapy and was started on IV steroids. She was given theophylline. Steroids were tapered. She had high potassium levels and was given Kayexalate. She had history of depression and anxiety and was continued on Xanax and Cymbalta. Remeron was added to her regimen. Blood pressure was monitored and was stable off antihypertensives. She was breathing better and was eventually cleared for discharge home to continue Medrol Dosepak and Levaquin po. FINAL DIAGNOSES: Acute COPD exacerbation Acute bronchitis Hypertension stable off meds Hypothyroidism Ulcerative colitis MDD Anxiety DISPOSITION: Patient was discharged home with home health. DISCHARGE MEDICATIONS: Refer to Discharge Medication List. Continue with Levaquin 500 mg daily for 7 days, and Medrol Dosepak. DISCHARGE INSTRUCTIONS: Follow up with Dr. Kris Sahni in a week. I have been assigned to dictate discharge summary on this account, and I was not involved in the patient's management. Candelaria Dave NP Jan 29, 2018 12:04
== END 2018-01-27 14:45 | disposition home health service (06) | DRG 191 ==
LOC: EDBD 14:59 → EMR 15:32 → 4W 19:07 → EDBEDREQ 20:15
DX: J44.0 Chronic obstructive pulmonary disease with (acute) lower respiratory infection (principal); K51.90 Ulcerative colitis, unspecified, without complications; J20.9 Acute bronchitis, unspecified; J44.1 Chronic obstructive pulmonary disease with (acute) exacerbation; F32.9 Major depressive disorder, single episode, unspecified; F41.9 Anxiety disorder, unspecified; I10 Essential (primary) hypertension; F17.210 Nicotine dependence, cigarettes, uncomplicated; E87.5 Hyperkalemia; E03.9 Hypothyroidism, unspecified
CPT/HCPCS: 36415; 71045; 80053; 82550; 83735; 83880; 84100; 84484; 85007; 85025; 85651; 86140; 87040; 94640; 94664; 94760; 99285; J7620